=== PATIENT | female | born 1935 | race African-American/Black ===

== ENCOUNTER 2017-12-03 13:13 | Inpatient (IN) | payer OTHER ==
[~2017-12-03] VITALS: Ht 154.9 cm; Wt 75.7 kg
[~2017-12-03 13:13] MED LIST: ALLOPURINOL 10100 M2 PO; ASPIR 8181 MG PO; GABAPENTIN 100100 MG PO; GLIMEPIRIDE4 MG PO; KLOR-CON 1010 MEQ PO; LASIX 40 MG TAB40 M2 PO; LEVEMIR FL100 UNIT/2 SQ; LEVEMIR SUBQ; LOPRESSOR50 PO; LOSARTAN-HCTZ1 EAC1 PO; MOBIC15 MG PO; MOBIC7.5 MG PO; NOVOLOG FL100 UNIT/M SQ; NOVOLOG100 UNIT/1 SUBQ; OXYBUTYNIN 5 MG5 M2 PO; PAXIL10 MG; PLAVIX 75 MG TA75 M1 PO; SIMVASTATIN40 MG PO; ZOCOR20 MG PO
[2017-12-03 13:55] LABS: ABSOLUTE EOSINOPHILS 0.2 thou/uL (0.0-0.7); ABSOLUTE LYMPHOCYTES 2.1 thou/uL (0.8-5.3); ABSOLUTE MONOCYTES 0.6 thou/uL (0.0-1.2); BASOPHILS 0.7 %; EOSINOPHILS 2.7 %; HEMATOCRIT 32.4 % (37.0-47.0); HEMOGLOBIN 10.2 gm/dL (12.0-15.0); LYMPHOCYTES 30.7 %; MCHC 31.6 g/dL (28.0-37.0); MCV 76.1 fL (80.0-100.0); MONOCYTES 9.1 %; MPV 9.1 fl. (7.2-11.1); NUCLEATED RBCS 0 /100WBC; PLATELET COUNT* 347 thou/uL (150-400); POLYS 56.8 %; RBC 4.26 mil/uL (4.20-5.00); RDW-CV 18.7 % (10.5-14.5)
[2017-12-03 14:00] LABS: URINE BILIRUBIN NEGATIVE (Negative); URINE BLOOD TRACE (Negative); URINE CLARITY CLEAR; URINE COLOR YELLOW; URINE GLUCOSE-RANDOM NEGATIVE (Negative); URINE KETONES NEGATIVE (Negative); URINE LEUKOCYTES-REFLEX NEGATIVE (Negative); URINE NITRITE-REFLEX NEGATIVE (Negative); URINE PROTEIN NEGATIVE (Negative); URINE UROBILINOGEN 0.2 E.U./dl (0.2-1.0)
[2017-12-03 14:58] LABS: ANION GAP 10 mmol/L (7-16); BUN 31 mg/dL (7-18); CALCIUM 8.7 mg/dL (8.5-10.1); CHLORIDE 102 mmol/L (98-107); CO2 27 mmol/L (21-32); CREATININE 2.1 mg/dL (0.6-1.3); GLUCOSE 175 mg/dL (70-99); POTASSIUM 3.8 mmol/L (3.5-5.1); SODIUM 139 mmol/L (136-145)
[2017-12-03 15:09] LABS: ALBUMIN 2.7 g/dL (3.4-5.0); ALKALINE PHOSPHATASE 60 U/L (46-116); NT-PRO BRAIN NAT PEPTIDE 330 pg/mL (<300); SGOT 19 U/L (15-37); SGPT 19 U/L (30-65); TOTAL BILIRUBIN 0.3 mg/dL (<0.1-1.0); TOTAL PROTEIN 7.3 g/dL (6.4-8.2); TROPONIN-I LEVEL <0.06 ng/mL (<0.06)
--- NOTE | 2017-12-03 15:22 | EKG ---
[place] [address] ELECTROCARDIOGRAM REPORT Name: TONY VANN Room: [facility]#: [id number] Admission: 12/03/17 Attend Phys: Discharge: Date of : 37 Report #: [id number] THIS REPORT FOR: //name// [facility] ED Test Date: 2017-12-03 Test Time: 13:16:51 Pat Name: TONY VANN Department: Room: Gender: F [employer] Research Associate: Tiago GHOTRA : 1935 Requested By: Mandie Betancourt Order Number: [id number] MD: Ayad Blackwood Measurements Intervals [place] Rate: 57 P: 46 [place]: 175 QRS: -20 QRSD: 115 T: 142 QT: 492 QTc: 479 Interpretive Statements Sinus rhythm LVH with secondary repolarization abnormality Compared to ECG 07/19/2016 18:30:34 Early repolarization now present T-wave abnormality no longer present Electronically Signed On 12-03-2017 15:22:17 CDT by Ayad Blackwood [email or web address] <ELECTRONICALLY SIGNED> By: Ayad Blackwood MD, [facility] 12/03/17 1522 1316 1316 Ayad Blackwood MD, [facility] /EPI
[2017-12-03 16:08] VITALS: BP 138/55
--- NOTE | 2017-12-03 20:29 | NUR ---
PATIENT A&OX4, FORGETFUL AT TIMES, ROOM AIR, IV LEFT FOREARM FIELD STICK. UP WITH ASSISTX1, UNSTEADY AND WEAK. USING BEDSIDE CAMODE. FALL BAND, SOCK, AND BED ALARM ON. INSTRUCTED TO CALL FOR ASSISTANCE. PATIENT ARRIVED ON FLOOR AT 1650, ORIENTED TO ROOM. TOOK REPORT FROM RAIN IN ER. PATIENT HAS NO FURTHER CONCERNS AT THIS TIME. APPROPRAITE AND COOPORATIVE WITH CARE.
[2017-12-03 21:50] VITALS: BP 134/49
[2017-12-04 04:33] LABS: HEMATOCRIT 32.9 % (37.0-47.0); HEMOGLOBIN 10.5 gm/dL (12.0-15.0); MCHC 31.8 g/dL (28.0-37.0); MCV 75.3 fL (80.0-100.0); MPV 9.4 fl. (7.2-11.1); RBC 4.36 mil/uL (4.20-5.00); RDW-CV 18.5 % (10.5-14.5); WBC 6.7 thou/uL (4.0-11.0)
[2017-12-04 04:40] LABS: CALCIUM 8.3 mg/dL (8.5-10.1); CREATININE 1.5 mg/dL (0.6-1.3); MAGNESIUM 1.7 mg/dL (1.8-2.4); POTASSIUM 3.1 mmol/L (3.5-5.1)
--- NOTE | 2017-12-04 06:21 | NUR ---
PATIENT SLEPT MOST OF THE NIGHT. IV FLUIDS CONTINUE TO INFUSE AT 75 ML/HR. PATIENT HAD NO COMPLAINTS OF PAIN. WILL CONTINUE TO MONITOR.
[2017-12-04 07:09] LABS: URINE POTASSIUM-RANDOM 40.4 mmol/L
[2017-12-04 09:41] VITALS: BP 126/45
--- NOTE | 2017-12-04 09:48 | NUR ---
ASSUMED CARE OF PT AROUND 0730 THIS AM. REFER TO ASSESSMENT. IV NO LONGER PATENT THIS AM. PT TO HAVE ELECTROLYTE REPLACEMENT THIS SHIFT. NO OTHER CONCERNS AT THIS TIME. CLWR. WCTM.
[2017-12-04 12:23] VITALS: BP 122/51
--- NOTE | 2017-12-04 15:20 | NUR ---
MET WITH PT TO DISCUSS HOME SITUATION/DC PLANNING. PT LIVES ALONE. HAS SUPPORTIVE SON WHO LIVES CLOSEBY AND ASSISTS NEEDED. PT HAS CANE, IS ABLE TO DO SOME HOUSEHOLD DUTIES. NEEDS ASSIST WITH HER ADLS. PT HAS IN HOME CARE [facility]RU [facility] ([phone]) THRU ASSIST. SPOKE [facility] THERE, HE STATED PT HAS 10HRS/WEEK. THEY ASSIST WITH HOMEMAKER SERVICE A SHOWER WEEKLY. PT IS ASKING ABOUT GETTING HH AGAIN INCLUDING A BATH AIDE. DISCUSSED OPTIONS AND CHOSE [facility]. CALLED AND FAXED INITIAL REFERRAL TO [facility]. PT HAS BEEN ON SERVICE [facility] IN THE PAST BUT SHE STATES THEY 'STOPPED A LONG TIME AGO.' PT PLANS TO RETURN HOME SOON.
[2017-12-04 15:25] VITALS: BP 122/51
[2017-12-04 15:28] VITALS: BP 122/42
--- NOTE | 2017-12-04 16:22 | NUR ---
PT PROGRESSING WELL TOWARDS GOALS. POTASSIUM AND MAG REPLACED THIS SHIFT. DIASTOLIC B/P REMAINS LOW THIS SHIFT. ENCOURAGED ORAL INTAKE FREQUENTLY. PT HAS NO IV ACCESS D/T INFILTRATED IV AND DIFFICULTY TO OBTAIN ACCESS. NO OTHER CONCERNS AT THIS TIME. CLWR. WCTM.
[2017-12-04 17:14] LABS: MAGNESIUM 1.9 mg/dL (1.8-2.4)
[2017-12-04 17:15] LABS: POTASSIUM 4.1 mmol/L (3.5-5.1)
[2017-12-04 20:00] VITALS: BP 141/71
--- NOTE | 2017-12-05 05:32 | NUR ---
PT CARE ASSUMED AFTER REPORT. ASSESSMENT COMPLETE. PT UP WITH ASSIST AND WALKER. PT FORGETFUL AND DOES NOT USE CALL LIGHT. FALL PRECAUTIONS IN PLACE INCLUDING BED ALARM. CALL LIGHT IN REACH AND PT EDUCATED ON USE NUMOROUS TIMES. BED IN LOWEST POSITION. PT INCONT OF B/B. ANDRE CARE AND BED CHANGES PRN. DENIES PAIN.
[2017-12-05 08:00] VITALS: BP 138/44
--- NOTE | 2017-12-05 12:29 | NUR ---
ASSUMED CARE OF PATIENT THIS AM AT 0730. PATIENT IS ALERT AND ORIENTED X 4. SHE DENIES PAIN THIS AM. PATIENT ASSISTED UP TO THE CHAIR AND WITH MEALS. SHE SAID THAT SHE IS READY TO GO HOME TODAY. FSBS MONITORED HER BLOOD SUGARS WERE LOW AT 43. HER BP WAS ALSO LOW. BP MEDICATION HELD. INSULIN HELD THIS AM. WILL CONTINUE TO MONITOR PATIENT'S BLOOD SUGARS AND VITAL SIGNS.
[2017-12-05 15:37] VITALS: BP 155/53
[2017-12-05 20:00] VITALS: BP 121/75
[2017-12-06] VITALS: BP 111/44
[2017-12-06 05:23] LABS: CREATININE 1.3 mg/dL (0.6-1.3); MAGNESIUM 1.8 mg/dL (1.8-2.4); POTASSIUM 3.8 mmol/L (3.5-5.1)
--- NOTE | 2017-12-06 05:30 | NUR ---
PT SLEPT AT INTERVALS DURING THE NIGHT, NO IV, ROOM AIR, UP SEVERAL TIMES TO VOID PER BSC WITH ASSISTANCE, PLEASANT, CALL LIGHT IN REACH, BED ALARM ON FOR SAFETY, WILL CONTINUE TO MONITOR
[2017-12-06 05:54] LABS: HEMATOCRIT 32.9 % (37.0-47.0); HEMOGLOBIN 10.6 gm/dL (12.0-15.0); MCH 24.1 pg (26.0-34.0); MCHC 32.2 g/dL (28.0-37.0); MCV 74.8 fL (80.0-100.0); MPV 9.3 fl. (7.2-11.1); RBC 4.4 mil/uL (4.20-5.00); RDW-CV 18.3 % (10.5-14.5); WBC 7.9 thou/uL (4.0-11.0)
[2017-12-06 08:00] VITALS: BP 161/64
--- NOTE | 2017-12-06 12:49 | NUR ---
Discussed disposition with Pt, continues to plan to return home with [facility] HH. DC orders will need to be faxed to [facility] at [phone]. Family in room and in agreement with POC. Anticipate dc tomorrow.
[2017-12-06 16:00] VITALS: BP 139/69
--- NOTE | 2017-12-06 16:27 | NUR ---
PATIENT SITTING UP IN CHAIR ALL SHIFT. VOIDING PER BSC WITH ASSISTANCE. BLOOD SUGARS WITHIN NORMAL LIMITS, INSULIN GIVEN WHEN REQUIRED. LANTUS DECREASED TO 30 UNITS AT HS DUE TO LOW BLOOD SUGARS IN AM. PATIENT AWARE OF PLAN OF CARE.
[2017-12-06 20:00] VITALS: BP 127/51
[2017-12-06 23:30] VITALS: BP 131/48
--- NOTE | 2017-12-07 04:58 | NUR ---
PT SLEPT AT INTERVALS DURING THE NIGHT, NO IV, SNACK AT HS WITH INSULIN, PLEASANT, UP WITH ASSIST TO THE BSC, STRESS INCONTINENCE, PLEASANT, CALL LIGHT ON REACH, BED ALARM ON FOR SAFETY, WILL CONTINUE TO MONITOR
[2017-12-07 09:00] VITALS: BP 115/43
--- NOTE | 2017-12-07 16:21 | NUR ---
PATIENT BLOOD SGUAR 46 THIS AM DURING AM ROUNDS. PATIENT FOUND TO BE ASYMPTOMATIC. JUICE GIVEN AND PATIENT HAD BREAKFAST. NO INSULIN GIVEN THIS SHIFT. LANTUS DECREASED TO 20 UNITS TO START TONIGHT. PATIENT SITTING UP IN CHAIR ALL SHIFT. ASSISTED UP TO BATHROOM USING WALKER. PATIENT HAD VERY LARGE BM THIS SHIFT.
[2017-12-07 16:35] VITALS: BP 160/73
[2017-12-07 21:30] VITALS: BP 191/67
[2017-12-08 01:07] VITALS: BP 108/47
--- NOTE | 2017-12-08 06:34 | NUR ---
PT AO, USING CALL LITE APPROPRIATELY FOR ASSIST UP TO BSC OVERNIGHT. UP TO BR WITH WALKER AND SBA ALSO. DENIES PAIN OR PROBLEMS. HS ACCUCHECK 235, INSULIN GIVEN ORDERED WITH GOOD SNACK. R LIMB ALERT. NO LBAS THIS MORNING. NO IV ACCESS, TAKING PO MEDS WITHOUT DIFFICULTY. DNR. STRESS INCONTINENCE AT TIMES. ANTICIPATING DISCHARGE HOME TODAY WITH WALKER AND HOME HEALTH. BP ELEVATED AT START OF SHIFT, MORNING BP MED HAD BEEN HELD. BP RESPONDING WELL TO MEDS GIVEN AT HS. CALL LITE IN EASY REACH, BED ALARM ON FOR SAFETY.
[2017-12-08 08:20] VITALS: BP 130/47
[2017-12-08 12:00] VITALS: BP 147/49; BP 148/72; BP 152/63
[2017-12-08 12:32] VITALS: BP 122/51
--- NOTE | 2017-12-08 12:33 | NUR ---
MERE was informed pt to dc home and needed a rolling walker. MERE called and spoke with Alicja/[facility] [phone] and received approval for order, MERE faxed completed referral and order to fax [phone]. MERE faxed final orders, med list and face to face to [facility] after calling and speaking with intake who had already accepted referral and received initial information. MERE attempted to fax 4 times to two different numbers and fax would not complete so MERE provided to Maggie who was able to accept by hand. Pt has a ride home and did not have any other known dc needs.
[2017-12-08 13:54] VITALS: BP 122/51
--- NOTE | 2017-12-08 15:18 | NUR ---
1450-DISCHARGE INSTRUCTIONS REVIEWED WITH PT AND HER NIECE. PT AND FAMILY DO NOT VERBALIZE ANY CONCERNS OR QUESTIONS AT THIS TIME. PT VSS THIS SHIFT. ROLLER WALKER DELIVERED TO PT PRIOR TO D/C. PT TAKEN OUT VIA WHEELCHAIR WITH NURSING STAFF. NO RX GIVEN THIS SHIFT. EXTRA COPY OF D/C INSTRUCTIONS GIVEN TO PT AND FAMILY FOR "[facility]" WHO MANAGES HER CARE OUTSIDE OF THE HOSPITAL.
== END 2017-12-08 14:55 | disposition home health service (06) | DRG 682 ==
LOC: M.ERS 13:13 → M.TBA-ER 15:41 → M.3W 15:41
PROVIDERS: Family Medicine; Nurse Practitioner Family; ADMIT Internal Medicine
DX: I12.9 Hypertensive chronic kidney disease with stage 1 through stage 4 chronic kidney disease, or unspecified chronic kidney disease (principal); N17.0 Acute kidney failure with tubular necrosis; E44.0 Moderate protein-calorie malnutrition; I69.351 Hemiplegia and hemiparesis following cerebral infarction affecting right dominant side; N18.4 Chronic kidney disease, stage 4 (severe); I95.2 Hypotension due to drugs; E11.22 Type 2 diabetes mellitus with diabetic chronic kidney disease; Z66 Do not resuscitate; E11.649 Type 2 diabetes mellitus with hypoglycemia without coma; E11.51 Type 2 diabetes mellitus with diabetic peripheral angiopathy without gangrene; E78.5 Hyperlipidemia, unspecified; E11.42 Type 2 diabetes mellitus with diabetic polyneuropathy; E86.0 Dehydration; I25.2 Old myocardial infarction; Z95.5 Presence of coronary angioplasty implant and graft; Z90.49 Acquired absence of other specified parts of digestive tract; Z90.11 Acquired absence of right breast and nipple; Z90.710 Acquired absence of both cervix and uterus; Z79.4 Long term (current) use of insulin; Z68.31 Body mass index [BMI] 31.0-31.9, adult; Z79.82 Long term (current) use of aspirin; Z79.899 Other long term (current) drug therapy; Z82.49 Family history of ischemic heart disease and other diseases of the circulatory system

== ENCOUNTER 2018-03-24 23:03 | Inpatient (IN) | payer OTHER ==
[~2018-03-24] VITALS: Ht 154.9 cm; Wt 72.1 kg
[2018-03-24 23:04] VITALS: BP 112/52
--- NOTE | 2018-03-24 23:30 | NUR ---
Pt capable of moving bilateral legs and lifting hips for bedpan placement x2, but unable to provide urine. Pt states she might be able to if placed on commode. Pt moved to side of bed, but pt unable to stand. Dr Orozco updated.
[2018-03-24 23:45] LABS: ABSOLUTE BASOPHILS 0.1 thou/uL (0.0-0.2); ABSOLUTE EOSINOPHILS 0.3 thou/uL (0.0-0.7); ABSOLUTE LYMPHOCYTES 2.8 thou/uL (0.8-5.3); ABSOLUTE MONOCYTES 0.7 thou/uL (0.0-1.2); ABSOLUTE NEUTROPHILS 3.7 thou/uL (1.6-8.1); BASOPHILS 1.9 %; EOSINOPHILS 3.6 %; HEMOGLOBIN 11.5 gm/dL (12.0-15.0); LYMPHOCYTES 36.3 %; MCH 23.5 pg (26.0-34.0); MCHC 31.8 g/dL (28.0-37.0); MCV 73.9 fL (80.0-100.0); MPV 7.9 fl. (7.2-11.1); NUCLEATED RBCS 0 /100WBC; PLATELET COUNT* 339 thou/uL (150-400); POLYS 49.2 %; RBC 4.88 mil/uL (4.20-5.00); RDW-CV 20.3 % (10.5-14.5); WBC 7.6 thou/uL (4.0-11.0)
[2018-03-24 23:52] LABS: CALCIUM 9.2 mg/dL (8.5-10.1); CREATININE 1.5 mg/dL (0.6-1.3); POTASSIUM 4.3 mmol/L (3.5-5.1)
[2018-03-24 23:57] LABS: ALBUMIN 3.1 g/dL (3.4-5.0); TOTAL BILIRUBIN 0.4 mg/dL (<0.1-1.0)
[2018-03-25 00:06] LABS: URINE BILIRUBIN NEGATIVE (Negative); URINE BLOOD NEGATIVE (Negative); URINE CLARITY CLEAR; URINE COLOR YELLOW; URINE GLUCOSE-RANDOM NEGATIVE (Negative); URINE KETONES NEGATIVE (Negative); URINE LEUKOCYTES-REFLEX NEGATIVE (Negative); URINE NITRITE-REFLEX NEGATIVE (Negative); URINE PROTEIN NEGATIVE (Negative); URINE SPECIFIC GRAVITY 1.025 (1.005-1.030); URINE UROBILINOGEN 0.2 E.U./dl (0.2-1.0)
[2018-03-25 00:18] LABS: BE 1.5 mmol/L (-2 to +3); HCO3 26.7 mmol/L (22.0-26.0); PCO2 44.3 mmHg (35.0-45.0); pH 7.398 (7.340-7.450)
[2018-03-25 00:20] LABS: PO2 26.4 mmHg (75.0-100.0)
[2018-03-25 01:06] LABS: MAGNESIUM 1.9 mg/dL (1.8-2.4)
[2018-03-25 01:31] LABS: ANISOCYTOSIS 2+; PLATELET ESTIMATE ADEQUATE
[2018-03-25 01:32] LABS: HYPOCHROMASIA 1+; MICROCYTES 1+; TARGET CELLS 1+
[2018-03-25 02:30] VITALS: BP 140/78
--- NOTE | 2018-03-25 04:26 | NUR ---
RECEIVED REPORT FROM YUN THOMAS AT 0225. PT ARRIVED TO UNIT AT 0240 VIA CART. PT ORIENTED TO ROOM AND CALL LIGHT, MARINE AIR GROUND TASK FORCE PLANNERS IN PLACE, TRACING SINUS RHYTHM. HOURLY ROUNDING COMPLETED, HIGH FALL PRECAUTIONS IN PLACE, Q2H REPOSITIONING COMPLETED, CALL LIGHT WITHIN REACH.
[2018-03-25 08:00] VITALS: BP 107/44
--- NOTE | 2018-03-25 09:50 | NUR ---
RECEIVED CONSULT FOR POSSIBLE REHAB ADMISSION. CONSULT HAS BEEN ACKNOWLEDGED BY SUPERVISOR CUTTING AND BONING AND DR. MAYES. PT ADMITTED WITH LOW BS AND ENCEPHLOPATHY S/P FALL AND POSSIBLE CVA. NEUROLOGY CONSULT PENDING, STROKE WORKUP IN PROGRESS, PT/OT/ST EVALUATIONS ARE PENDING. WILL FOLLOW ALONG WITH PATIENT TO SEE RESULTS OF WORKUP AND EVALUATIONS TO DETERMINE PATIENTS NEED FOR ACUTE REHAB. THANK YOU FOR THIS CONSULT.
[2018-03-25 12:00] VITALS: BP 150/75
--- NOTE | 2018-03-25 14:05 | 2DMMODE ---
[place] [address] 2 D/M-MODE ECHOCARDIOGRAM Name: TONY VANN Room: [address] IN [facility]#: [id number] Admission: 03/25/18 Attend Phys: Jonathan Mcelroy Discharge: Date of : 37 Date of Service: 03/25/18 1405 Report #: [id number] THIS REPORT FOR: //name// APPROVED REPORT Study performed: 03/25/2018 11:12:11 EXAM: Comprehensive 2D, Doppler, and color-flow Echocardiogram Patient Location: In-Patient Room #: 200 Status: routine BSA: 1.73 HR: 68 bpm BP: 107/44 mmHg Rhythm: NSR Other Information Study Quality: Good Indications CVA/TIA Echo Enhancing Agent Comments: Bubble study was not done due to no working IV access. Patient though had a negative bubble study with prior echo done in June 2017 2D Dimensions LVEF(%): 74.74 (>50%) IVSd: 14.71 (7-11mm) LVOT Diam: 20.04 (18-24mm) LVDd: 40.02 mm PWd: 10.99 (7-11mm) Ascending Ao: 26.31 (22-36mm) LVDs: 22.79 (25-40mm) Aortic Root: 26.99 mm Abraham's LVEF: 74.74 % Volumes Left Atrial Volume (Systole) LA ESV Index: 27.80 mL/m2 Aortic Valve AoV Peak Shaq.: 1.45 m/s AO Peak Gr.: 8.46 mmHg LVOT Max P.36 mmHg AO Mean Gr.: 4.79 mmHg LVOT Mean P.09 mmHg LVOT Max V: 1.04 m/[place] [address] 2 D/M-MODE ECHOCARDIOGRAM Name: TONY VANN Room: [address] IN M.R.#: [id number] Admission: 03/25/18 Attend Phys: Jonathan Mcelroy Discharge: Date of : 37 Date of Service: 03/25/18 1405 Report #: [id number] AO V2 VTI: 30.90 cm LVOT Mean V: 0.66 m/s JOSE JUAN (VTI): 2.74 cm2 LVOT V1 VTI: 26.87 cm Mitral Valve E/A Ratio: 1.01 MV Decel. Time: 244.49 ms MV E Max Shaq.: 0.91 m/s MV PHT: 70.90 ms MVA (PHT): 3.10 cm2 TDI E/Lateral E': 11.38 E/Medial E': 22.75 Medial E' Shaq.: 0.04 m/s Lateral E' Shaq.: 0.08 m/s Pulmonary Valve PV Peak Shaq.: 1.00 m/s PV Peak Gr.: 4.02 mmHg Tricuspid Valve RAP Estimate: 5.00 mmHg TR Peak Gr.: 33.94 mmHg RVSP: 38.94 mmHg PA Pressure: 38.94 mmHg Left Ventricle The left ventricle is normal size. There is normal LV segmental wall motion. Mild to moderate concentric left ventricular hypertrophy. Left ventricular systolic function is vigorous. LVEF is 80% Transmitral Doppler flow pattern suggests impaired LV relaxation. Right Ventricle The right ventricle is normal size. The right ventricular systolic function is normal. Atria The left atrium size is normal. The right atrium size is normal. Aortic Valve The aortic valve is normal in structure. No aortic regurgitation is present. There is no aortic valvular stenosis. Mitral Valve The mitral valve is normal in structure. Mild mitral regurgitation. No evidence [place] [address] 2 D/M-MODE ECHOCARDIOGRAM Name: VIRY VANNRYLAN Eddy Room: [address] IN [facility]#: [id number] Admission: 03/25/18 Attend Phys: Jonathan Mcelroy Discharge: Date of : 37 Date of Service: 03/25/18 1405 Report #: [id number] Tricuspid Valve The tricuspid valve is normal in structure. Trace tricuspid regurgitation. Mild pulmonary hypertension. Pulmonic Valve The pulmonary valve is normal in structure. There is no pulmonic valvular regurgitation. Great Vessels The aortic root is normal in size. IVC is normal in size and collapses with >50% inspiration Pericardium There is no pericardial effusion. <Conclusion> The left ventricle is normal size. Mild to moderate concentric left ventricular hypertrophy. Left ventricular systolic function is vigorous. LVEF is 80% Transmitral Doppler flow pattern suggests impaired LV relaxation. Mild mitral regurgitation. Trace tricuspid regurgitation. Mild pulmonary hypertension. IVC is normal in size and collapses with >50% inspiration <ELECTRONICALLY SIGNED> By: Rohith Stokes MD, FACC 03/25/18 1405 1405 1405 Rohith Stokes MD, FACC /INF
--- NOTE | 2018-03-25 14:44 | NUR ---
Pt is A&O. Resides at home alone. Pt has inhome care givers through [employer] of [phone]. Caregivers, perform cleaning, meal prep, bathing assist and transportation. Pt uses a RW or cane for mobility. Supportive family that is involved in POC. Hx of [facility] HH. No hx of SNF. CM discussed possibility of needing skilled at dc, Pt stated "I really don't want to go and stay anywhere, I would rather just go home. PT/OT/ST henning ordered. Following for disposition.
[2018-03-25 15:38] VITALS: BP 194/74
--- NOTE | 2018-03-25 17:15 | NUR ---
I ASSUMED CARE OF THE PATIENT AT 0700. SHE IS ALERT AND ORIENTED X4 AND PATIENT IS MAX ASSIST OF 2. SHE IS A Q2H TURN. BED IS IN THE LOW LOCKED POSITION AND CALL LIGHT IS IN REACH. HOURLY ROUNDING WAS COMPLETED AND PATIENT NEEDS ARE MET. PAIN IS DENIED. IV ACCESS IS NOT PRESENT AND THERE IS AN ORDER TO LEAVE IT OUT. BLOOD SUGAR IS MUCH BETTER. SHE IS A RIGHT SIDED LIMB ALERT. 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 WILL CONTINUE TO MONITOR. SHE NEEDS HELP WITH MEAL SETUP AND ADL'S. PATIENT HAD A LARGE BM IN THE BED WHEN SHE WAS ASKED TO BEAR DOWN FOR HER ECHO.
--- NOTE | 2018-03-25 17:57 | EKG ---
[place] [address] ELECTROCARDIOGRAM REPORT Name: TONY VANN Room: [address] ADM IN M.R.#: [id number] Admission: 03/25/18 Attend Phys: Ann-Marie He Discharge: Date of : 36 Report #: [id number] THIS REPORT FOR: //name// [facility] ED Test Date: 2018-03-24 Test Time: 23:11:11 Pat Name: TONY VANN Department: Room: [address] Gender: F Patient Admitting Representative: NITHIN : 1935 Requested By: Elenita Orozco Order Number: [id number] Brittany MD: Rohith Stokes Measurements Intervals [place] Rate: 59 P: 44 [place]: 173 QRS: -23 QRSD: 106 T: 116 QT: 453 QTc: 449 Interpretive Statements Sinus rhythm LVH with secondary repolarization abnormality Compared to ECG 12/03/2017 13:16:51 No significant changes Electronically Signed On 03-25-2018 17:57:33 CDT by Rohith Stokes [email or web address] <ELECTRONICALLY SIGNED> By: Rohith Stokes MD, [facility] 03/25/18 1757 10 10 Rohith Stokes MD, FAC /EPI
[2018-03-25 19:54] VITALS: BP 143/69
[2018-03-26] VITALS: BP 116/60
[2018-03-26 04:00] VITALS: BP 143/60
[2018-03-26 04:49] LABS: ANION GAP 7 mmol/L (7-16); BUN 18 mg/dL (7-18); CALCIUM 8.5 mg/dL (8.5-10.1); CHLORIDE 104 mmol/L (98-107); CHOLESTEROL 147 mg/dL (<200); CO2 30 mmol/L (21-32); CREATININE 1.3 mg/dL (0.6-1.3); GLUCOSE 116 mg/dL (70-99); HDL CHOLESTEROL 43 mg/dL (>40); LDL CHOLESTEROL 76 mg/dL (<100); MAGNESIUM 1.6 mg/dL (1.8-2.4); POTASSIUM 4.2 mmol/L (3.5-5.1); SODIUM 141 mmol/L (136-145); TC:HDL 3.4 Ratio (Not establshd); TRIGLYCERIDE 143 mg/dL (<150); VLDL 29 mg/dL (<40)
[2018-03-26 04:54] LABS: SERUM ASSESSMENT CLEAR
[2018-03-26 08:02] VITALS: BP 124/42
--- NOTE | 2018-03-26 08:06 | NUR ---
PT IS ABLE TO COMMUNICATE HER NEEDS TO STAFF EFFECTIVELY. CURRENT PAIN MEDICATION REGIMEN HAS BEEN ADEQUATE FOR CONTROLLING HER PAIN UP TO THIS TIME. JARAD MONTOYA. PT HAD AN MRI T+L-SPINE DURING THIS SHIFT; RESULTS COMMUNICATED TO DR. GARRETT.
--- NOTE | 2018-03-26 08:55 | NUR ---
ASSUMED CARE OF PT THIS AM AROUND 07- TRAFFIC DIRECTOR IN PLACE ORDERED, TRACING SR- UPON ASSESSMENT PT NOTED TO BE RESTING IN BED, EYES CLOSED- ARROUSABLE BUT GROGGY- PT A&O X3-4 WITH NOTED FORGETFULLNESS- ABRAHAM IN PLACE D/D EVELIN COLORED URINE WITH NOTED SEDIMENTATION R/T RETENTION/CONT OF BOWEL- BED REST IN PLACE WITH Q 2 HOUR TURNS INDICATED- LCTA, DIMINISHED IN BASES- RESP EVEN AND UN-LABORED- VSS, O2 SAT 96% ON RA- ABDOMEN SOFT/ROUND/NON-TENDER, BS X4 QUADS- LAST BM REPORTED 03/25/18- SET UP REQUIRED WITH MEALS, GOOD PO INTAKE NOTED WITH BREAKFAST THIS AM- BS MONITORED ORDERED, SCHEDULED INSULIN PRESCIBED- TRACE EDEMA NOTED TO BLE- NIH NOTED AT 1 WITH NO CHANGES NOTED- PT DENIES ANY C/O PAIN/DISCOMFORT AT THIS TIME- CALL LIGHT AND PERSONAL BELONGINGS WITH IN REACH- BED ALARM IN PLACE AND WORKING FOR PT SAFETY/NEEDS-HOURLY ROUNDS IN PLACE R/T SAFETY/NEEDS- ALL NEEDS MET AT THIS TIME-WCTM
[2018-03-26 12:11] VITALS: BP 122/45
--- NOTE | 2018-03-26 12:34 | CON ---
[address] [address] CONSULTATION Name: TONY VANN Room: [address] ADM IN M.R.#: [id number] Admission: 03/25/18 Attend Phys: Ann-Marie He Discharge: Date of : 37 Report #: [id number] THIS REPORT FOR: //name// CC: Ken Mcelroy DATE OF SERVICE: 03/25/2018 HISTORY OF PRESENT ILLNESS: This is an 82-year-old female patient who was evaluated by me for the leg weakness. I talked to the Emergency Room physician who admitted this patient. I talked to the nurses and I talked to the patient herself. This patient has some baseline weakness. Records indicate she was seen by Dr. 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 Apparently, her notes indicate she was legally blind even that time. She was admitted with what looks like a pretty significant hypoglycemia and it was persistent and she became weak in both lower extremities and was unable to walk. She indicated that she has started to improve and her strength is better. She is difficult to evaluate because we do not know what her baseline is. She continued to be weak. Her rest of the history is poorly defined. She has very pronounced and severe weakness in the lower extremities. She apparently had a fall, but is not complaining of any back pain and she does not know anything, which makes it better or worse. REVIEW OF SYSTEMS: Indicate that this patient has a history of stroke. She is legally blind. She had the workup done not too long ago when she had a stroke. From her MRI, it looks like she had another stroke. She is a diabetic. She is on Plavix. She also takes the pain medication. She has a history of dyslipidemia. She has a severe hypoglycemia. She has a history of neuropathy, diverticulitis, kidney disease, hysterectomy, mastectomy and hypertension. This was her relevant 14-point review of system. She does not have any new hematological, dermatological, psychiatric, throat, allergic symptom associated with present symptomatology. PAST MEDICAL HISTORY: Positive for stroke. That stroke was in 2017 and looks like was occipital lobe stroke. FAMILY HISTORY: Negative for early age stroke. SOCIAL HISTORY: She does not smoke or drink any alcohol. PHYSICAL EXAMINATION: NEUROLOGICAL: Indicate she is alert, responsive, able to follow simple and complex command. Her speech looks intact. Memory and fund of knowledge is at her baseline. Cranial nerve examination 2 through 12 was attempted. She has very difficult time seeing but she can count fingers sometime. She moves all 4 extremities. She is weak in all 4 extremities. [place] [address] CONSULTATION Name: TONY VANN Room: [address] IN ..#: [id number] Admission: 03/25/18 Attend Phys: Ann-Marie He Discharge: Date of : 37 Report #: [id number] extremities than upper extremities. Reflexes are diminished. Tone looks symmetrical. I could not look at the fundus. EXTREMITIES: She does not appear to have any edema, cyanosis or jaundice. GENERAL: She is moderately built individual. HEENT: She can hear and see. VITAL SIGNS: The last blood pressure is 107/44, pulse is 72, temperature is 97.9 and respiration is 16. LABORATORY DATA: Indicate a creatinine of 1.5. White count is normal at 7.6. She did have an MRI of the brain, which demonstrates new cerebellar strokes. IMPRESSION: 1. Lot of symptoms may be secondary to her hypoglycemia, which has been persistent and at least significant. 2. 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 We may have to address that question because she has multiple strokes in the posterior fossa since last year. 3. Spine pathology is unlikely but probably need to be excluded with weakness of the legs. RECOMMENDATIONS: We will get some recommendations. I discussed the situation with the patient. We will see how she does with PT, OT. I will get the MRI of the thoracic and lumbar spine done to exclude any pathology there. She may need some more workup as an outpatient for recurrent strokes, which has been happening since 2017 and main workup will be to look for any episode of atrial fibrillation. She is already on aspirin and Plavix and I am not sure what else can be done until we find the atrial fibrillation or any other reason to anticoagulate her. Thank you very much for this referral and if you have any question, please feel free to contact me. <ELECTRONICALLY SIGNED> By: Americo Lo MD 03/26/18 1234 1204 09Americo Lo MD /nt
--- NOTE | 2018-03-26 14:59 | NUR ---
CONTINUING TO FOLLOW PATIENT ALONG WITH DR. MAYES. PATIENT WITH CVA. PARITICIPATING WITH THERAPIES. SPOKE WITH THERAPIES AND STATE PATIENT WOULD BE [facility] CANDIDATE AND HAS NEEDS FOR PT/OT/ST. PATIENT HAS SUPPORTIVE FAMILY AND CURRENTLY HAS IN HOME ASSISTANCE WITH HOMAKING AND A BATHE AID. WOULD BE ABLE TO INCREASE ASSISTANCE NEEDED IN HOME AFTER REHAB IF NEEDED. WILL PLAN TO ACCEPT PATIENT TO ACUTE REHAB ONCE MEDICALLY STABLE PENDING INSURANCE AUTHORIZATION. SPOKE WITH JENNIFER HU AND INFORMED HER A TENTATIVE ACCEPTANCE.
--- NOTE | 2018-03-26 15:58 | EKG ---
[place] [address] ELECTROCARDIOGRAM REPORT Name: TONY VANN Room: [address] ADM IN M.R.#: [id number] Admission: 03/25/18 Attend Phys: Ann-Marie He Discharge: Date of : 37 Report #: [id number] THIS REPORT FOR: //name// [facility] Test Date: 2018-03-26 Test Time: 10:07:12 Pat Name: TONY VANN Department: Room: [address] Gender: F Prizer Hand: : 1935 Requested By: Tobias Hanson Order Number: [id number] Brittany MD: Ayad Blackwood Measurements Intervals [place] Rate: 60 P: 40 NE: 175 QRS: -20 QRSD: 104 T: 107 QT: 461 QTc: 461 Interpretive Statements Sinus rhythm Atrial premature complex Borderline left axis deviation Abnormal T, consider ischemia, lateral leads Baseline wander in lead(s) V1 Compared to ECG 03/24/2018 23:11:11 Atrial premature complex(es) now present Electronically Signed On 03-26-2018 15:58:09 CDT by Ayad Blackwood [email or web address] <ELECTRONICALLY SIGNED> By: Ayad Blackwood MD, [facility] 03/26/18 1558 1007 1007 Ayad Blackwood MD, [facility] /EPI
[2018-03-26 16:00] VITALS: BP 143/68
--- NOTE | 2018-03-26 16:49 | NUR ---
PT CURRENTLY RESTING IN BED SIDE RECLINER- LOCOMOTIVE OPERATOR IN PLACE AND CONTINUED INDICATED, TRACING SB- PT UP WORKING WITH THERAPIES PRESCIBED, TOLERATING WELL- GOOD PO INTAKE NOTED WITH MEALS- BS MONITORED PRESCIBED, SSI AND SCHEUDLED INSULIN PRESCIBED- MG THIS AM NOTED TO BE 1.6, REPLACED THIS SHIFT PER PROTOCOL WITH REDRAW NOTED TO BE 1.9- DENIES ANY C/O PAIN/DISCOMFORT AT THIS TIME- CALL LIGHT AND PERSONAL BELONGINGS WITH IN REACH- ALL NEEDS MET AT THIS TIME-WCTM
[2018-03-26 20:00] VITALS: BP 150/69
[2018-03-27] VITALS: BP 169/56
--- NOTE | 2018-03-27 01:45 | NUR ---
ASSUMED PT CARE REPORT RECEIVED FROM NURSE. PT IS ALERT AWAKE ORIENTED X 3. SINUS RYTHM. ON ROOM AIR. VITAL SIGNS WITHIN NORMAL LIMIT. USES THE BEDPAM SO FAR THREE TIMES TO URINATE. NO COMPLAIINT OF PAIN. WILL CONTINUE TO MONITIR
[2018-03-27 02:11] LABS: GLYCOHEMOGLOBIN (HGB A1C) 5.8 % (4.8-5.6)
[2018-03-27 04:00] VITALS: BP 110/56
[2018-03-27 08:00] VITALS: BP 141/82
--- NOTE | 2018-03-27 08:47 | NUR ---
ASSUMED RESPONSIBILITY OF PT THIS AM PT IS ALERT AND ORIENTED FORGETFUL AND IRRITABLE C/O PAIN TO LEFT CHEST AREA WHEN MOVING AROUND SEEMS MORE MUSCULAR THAN ACTUAL CHEST PAIN WENT AWAY AFTER NOT MOVING RIGHT LIMB ALERT FOR RIGHT MASECTOMY ACHS BS 74 THIS AM NO INSULIN GIVEN PT IS VERY WEAK USES WALKER BUT STILL SLOW AND NEEDS EXTRA TIME CALL LIGHT IN REACH
--- NOTE | 2018-03-27 11:33 | NUR ---
Pt possibly to dc to inpt rehab today pending insurance auth received. SW to continue to follow.
[2018-03-27 11:47] VITALS: BP 121/45
[2018-03-27 15:18] VITALS: BP 119/47
--- NOTE | 2018-03-27 18:09 | NUR ---
PT BECAME INCREASINGLY MORE CONFUSED T/O DAY ALSO MORE WEAK SEEMS TO LOSE FUNCTION ALMOST COMPLETELY ON THAT LEFT SIDE WITH TRANSFERS AND LEANS TO THE RIGHT DRAMATICALLY HAVE TO KEEP REDIRECTING PT PT IS ASSIST X2 STATED DURING DINNER SHE WAS 'BLIND AND HAD BEEN' BUT SAW EVERYTHING ALL DAY NO BM BUT WAS INCONTINENT OF URINE WITH A STRONG ODOR CALL LIGHT IN REACH DENIES PAIN EXCEPT LEFT CHEST AREA WHEN MOVING
[2018-03-27 19:40] VITALS: BP 129/52
[2018-03-28] VITALS: BP 126/54
[2018-03-28 04:00] VITALS: BP 142/62
--- NOTE | 2018-03-28 04:25 | NUR ---
END SHIFT: PT RESTED WELL. C/O PAIN IN LEFT BREAST WITH MOVEMENT ONLY. PT STATES SHE DOES NOT NEED ANY MEDICATION FOR PAIN. C/O BLURRED VISION AT TIMES- PT STATES THAT THIS IS NOT NEW AND FROM PREVIOUS STROKE. PROFOUND WEAKNESS NOTED. PT WAS UNABLE TO GET OUT OF BED TO COMMODE OVER SHIFT AND REQUIRED TURNING AND BEDPAN. PT HAD A FEW WATERY LOOSE STOOLS OVER SHIFT. 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 BLOOD SUGARS CONTROLLED AND WNL. AWAITING DC TO REHAB. SAFETY PRECAUTIONS IN PLACE. VSS. WILL CONT TO MONITOR.
[2018-03-28 07:57] VITALS: BP 130/60
[2018-03-28 10:27] LABS: % SATURATION 7 % (20-39); IRON 21 ug/dL (50-175)
[2018-03-28 11:34] VITALS: BP 113/43
[2018-03-28 15:42] VITALS: BP 128/56
--- NOTE | 2018-03-28 17:13 | NUR ---
SHIFT NOTE - PT PARTICIPATED WITH PT/OT THIS SHIFT. PT ABLE TO TRANSFER FROM BED TO CHAIR WITH ASSIST OF 2 TWICE THIS SHIFT. PT USING BEDPAN. PT WILL CALL OUT WHEN NEEDED. US CAROTID AND RIB XRAY THIS SHIFT IN ROOM.
[2018-03-28 19:40] VITALS: BP 131/53
[2018-03-29] VITALS: BP 113/36
[2018-03-29 04:00] VITALS: BP 117/48
[2018-03-29 05:05] LABS: HEMATOCRIT 33.2 % (37.0-47.0); HEMOGLOBIN 10.5 gm/dL (12.0-15.0); MCH 23.5 pg (26.0-34.0); MCHC 31.5 g/dL (28.0-37.0); MCV 74.6 fL (80.0-100.0); MPV 8.7 fl. (7.2-11.1); RBC 4.46 mil/uL (4.20-5.00); RDW-CV 20.3 % (10.5-14.5); WBC 7.2 thou/uL (4.0-11.0)
--- NOTE | 2018-03-29 05:18 | NUR ---
A&O X4 CALM COOPERITVE. SR ON THE MONTIOR. UP WITH X1-2 MAX ASSIST. [id number]. VITALS WNL. SEE MAR. SEE CHARTING. FALL PRECAUTIONS IN PLACE. HOURLY ROUNDING FOR SAFETY.
[2018-03-29 05:23] LABS: ALBUMIN 2.5 g/dL (3.4-5.0); CALCIUM 8.3 mg/dL (8.5-10.1); CREATININE 1.4 mg/dL (0.6-1.3); POTASSIUM 3.6 mmol/L (3.5-5.1); TOTAL BILIRUBIN 0.2 mg/dL (<0.1-1.0); TOTAL PROTEIN 6.6 g/dL (6.4-8.2)
[2018-03-29 08:00] VITALS: BP 152/54
[2018-03-29 11:44] VITALS: BP 128/57
[2018-03-29 15:53] VITALS: BP 139/46
--- NOTE | 2018-03-29 18:07 | NUR ---
SHIFT NOTE - PT PARTICIPATED WITH THERAPY THIS SHIFT. PT ABLE TO SIT IN CHAIR FOR 3 HOURS THIS SHIFT. PT ABLE TO TRANSFER FROM CHAIR TO BED WITH ASSIST X 1 (MOD). PT USED BEDPAN MULTIPLE TIMES THIS SHIFT.
[2018-03-29 19:40] VITALS: BP 129/61
[2018-03-30] VITALS: BP 130/52
[2018-03-30 04:00] VITALS: BP 167/65
--- NOTE | 2018-03-30 06:45 | NUR ---
APROX 0440 PT BECAME CONFUSED. UNABLE TO REORIENT. PT BECAME COMBATIVE AND BELLIGERENT. PT REFUSED TO LET STAFF HELP. PT REFUSED TO ANSWER ANY QUESTIONS. WAS TEMPORARY ABLE TO RETURN PT TO BED. PT ATTEMPTED TO EXIT THE BED, PT REFUSED TO GET BACK INTO BED, AND REFUSED TO COMMUNICATE WITH STAFF. PT HIGH RISK FOR FALLS AND UNABLE TO STAND ON OWN. A STAFF PERSON HAS REMAINED IN ROOM TO PREVENT FALLS. PT REFUSED PROTONIX IN AM.
[2018-03-30 08:00] VITALS: BP 135/54
--- NOTE | 2018-03-30 09:51 | NUR ---
ASSUMED CARE OF PT AT 0730. PT SITTING ON EDGE OF BED. 1:1 NURSING STAFF SITTER AT BEDSIDE. PT A&0X4, FORGETFUL AT TIMES. PT STATES SHE IS SITTING ON EDGE OF BED AND TOLD THIS NURSE THAT SHE WILL LET ME DO MY JOB SINCE NO ONE ELSE IS. PT APPEARS FLAT AND IRRITABLE. THIS RN ABLE TO CALM PT AND GOAL FOR COOPERATION AND COMPLIANCE TODAY. PT TRACING SB ON THE PUBLISHING AGENT. ON RA SAT UPPER 90'S. DENIES ANY SHORTNESS OF BREATH OR PAIN AT THIS TIME. LEFT SIDED WEAKNESS NOTED. PT HAS STRESS INCONT, BRIEF NOTED. NIH COMPLETED-PT SCORING 2 FOR LEFT SIDED UPPER WEAKNESS. RIGHT LIMB ALERT IN PLACE. PT UP WITH MAX ASSIST TO BSC. PT GOAL IS COMPLIANCE AND COOPERATION, PT, OT, UP TO CHAIR FOR MEALS. AM ASSESSMENT CHARTED. MEDICATIONS PER MAR. PT REPOSITIONED EVERY 2 HOURS FOR COMFORT. HOURLY ROUNDING OBSERVED. BED IN LOW POSITION. BED ALARM IN PLACE .FALL PRECAUTIONS IN PLACE. CALL LIGHT WITHIN REACH. WILL CONTINUE PLAN OF CARE.
[2018-03-30 12:05] VITALS: BP 107/54
[2018-03-30 16:00] VITALS: BP 105/57
--- NOTE | 2018-03-30 16:19 | NUR ---
NO ACUTE CHANGES THROUGHOUT SHIFT. REFER TO CHARTING. PT MORE FRIENDLY, COOPERATIVE AND COMPLIANT THROUGHOUT AFTERNOON. SITTER REMOVED. PT PROGRESSING TOWARDS GOALS. PROBABLE DISCHARGE TO REHAB TOMORROW 03/31. PT WORKED WITH PT AND OT TODAY-TOLERATED WELL. PT SAT IN RECLINER FOR MEALS AND THROUGHOUT SHIFT. CONTINUES TO TRACE SR/SB ON THE DIETITIAN TEACHER. ON RA SAT UPPER 90'S. DENIES ANY PAIN OR SHORTNESS OF BREATH. PT UP WITH MAX ASSIST- NEGLECT TO LEFT SIDE NOTED. MEDICATIONS PER SEP. PT REPOSITIONED EVERY 2 HOURS FOR COMFORT. HOURLY ROUNDING OBSERVED. BED IN LOW POSITION. BED/CHAIR ALARM IN PLACE. FALL PRECAUTIONS IN PLACE. CALL LIGHT WITHIN REACH. WILL CONTINUE PLAN OF CARE.
[2018-03-30 19:20] VITALS: BP 152/69
[2018-03-31] VITALS (7 sets, daily range): BP systolic 98–157; BP diastolic 39–59
--- NOTE | 2018-03-31 04:52 | NUR ---
AAOX4, CAN BE FORGETFUL AT TIMES. RESP REG AND UNLABORED SIN W/D. LEFT SIDED WEAKNESS. NIH 2. TELEMETRY PACK INTACT WITH ALARMS SET. PT TURNED Q2 HOURS. VSS AND NO ACUTE CHANGES DURING SHIFT. WILL CONTINUE TO MONITOR
--- NOTE | 2018-03-31 10:09 | NUR ---
CM faxed referral to [facility]. Updated Pt on POC, Pt is in agreement. CM asked Liv at [facility] to initiate auth, anticipate dc soon.
--- NOTE | 2018-03-31 10:35 | NUR ---
AIRPLANE FUELER FOLLOW UP ON PATIENT ALONG WITH DR. MAYES. INSURANCE DENIED ACUTE REHAB ON FRIDAY GAVE OPTION FOR [id number] TO BE DONE BY TODAY AT NOON. SPOKE WITH JENNIFER HU WHO STATES PHYSICIAN DECISION IS NOT TO DO [id number] AND PATIENT WILL GO SKILLED. PLEASE RE-CONSULT SHOULD MEDICAL STATUS CHANGE.
--- NOTE | 2018-03-31 18:14 | NUR ---
PATIENT HAS BEEN ALERT AND ORIENTED TODAY VERY PLEASANT. UP WITH ASSIST OF 1 OR 2. HAS BEEN IN CHAIR MOST OF THE DAY. NO COMPLAINTS OF PAIN TODAY. PATIENT IS WAITING ON INSURANCE AUTHORIZATION TO GO TO SKILLED. VITAL SIGNS HAVE BEEN STABLE ON ROOM AIR TODAY. CALL LIGHT IS IN REACH WILL CONTINUE TO MONITOR.
[2018-04-01 04:00] VITALS: BP 157/58
--- NOTE | 2018-04-01 05:47 | NUR ---
PT AAOX4 RESP REG AND UNLABORED SKIN W/D NO ACUTE DISTRESS NOTED.`TELEMETRY PACK INTACT WITH ALARMS SET. PT SLEPT WELL TONIGHT AND STATED SHE FEELS MUCH STRONGER TODAY. VSS AND NO ACUTE CHANGES DURIGN SHIFT WILL CONTINUE TO MONITOR
[2018-04-01 08:15] VITALS: BP 132/49
--- NOTE | 2018-04-01 09:47 | NUR ---
Pt discharging to [facility] skilled today, facility to apple picking supervisor at 12. Faxed dc orders. Chart copied. Nurse report number provided, [phone]. Left voicemail for Pt's son.
--- NOTE | 2018-04-01 10:12 | NUR ---
ASSUMED PT CARE AT 0730, FULL ASSESMENT DONE CHARTED.PT A/O X4, PT GETS ANXIOUS WHEN TRYING TO AMBULATE WITH STAFF, SNAPS AT STAFF WHEN TRYING TO HELP HER. PT UP TO CHAIR AFTER BREAKFAST WITH 2 ASSIST. PT DENIES PAIN, BS 44 THIS AM, JUICE GIVEN, RECHECK BS 147. PT TO DISCHARGE TO [facility] TODAY AT NOON. WILL CONTINUE WITH PLAN OF CARE.
[2018-04-01 10:37] VITALS: BP 132/49
--- NOTE | 2018-04-01 11:57 | NUR ---
CALLED REPORT TO [facility], PT DISCHARGED WITH TRANSPORTER AT APPROX 1155 BY WC
--- NOTE | 2018-04-08 13:47 | CON ---
[facility] [address] [place] [address] CONSULTATION Name: TONY VANN Room: [address] IN M.R.#: [id number] Admission: 03/25/18 Attend Phys: Ann-Marie He Discharge: 04/01/18 Date of : 37 Report #: [id number] THIS REPORT FOR: //name// CC: Ken Mcelroy This is an evaluation and consultation regarding post-acute rehabilitation post cerebrovascular accident. The patient is refusing rehabilitation at this time and is discharging to the home setting, therefore, further consultation was not completed or billed at this time. <ELECTRONICALLY SIGNED> By: Alba Leblanc DO 04/08/18 1347 [id number] [id number] e Leblanc DO /alex
== END 2018-04-01 11:54 | DRG 64 ==
LOC: M.ERS 23:03 → M.2W 03-25 00:54 → M.TBA-ER 03-25 00:54 → M.2W 03-25 02:45
PROVIDERS: Family Medicine; Internal Medicine; Personal Emergency Response Attendant; ADMIT Internal Medicine
DX: I63.211 Cerebral infarction due to unspecified occlusion or stenosis of right vertebral artery (principal); G92 Toxic encephalopathy; I63.8 Other cerebral infarction; N18.3 Chronic kidney disease, stage 3 (moderate); E11.649 Type 2 diabetes mellitus with hypoglycemia without coma; T38.3X5A Adverse effect of insulin and oral hypoglycemic [antidiabetic] drugs, initial encounter; I25.10 Atherosclerotic heart disease of native coronary artery without angina pectoris; E11.42 Type 2 diabetes mellitus with diabetic polyneuropathy; E78.5 Hyperlipidemia, unspecified; I12.9 Hypertensive chronic kidney disease with stage 1 through stage 4 chronic kidney disease, or unspecified chronic kidney disease; M48.061 Spinal stenosis, lumbar region without neurogenic claudication; D50.9 Iron deficiency anemia, unspecified; K59.00 Constipation, unspecified; Z79.4 Long term (current) use of insulin; Z90.11 Acquired absence of right breast and nipple; I25.2 Old myocardial infarction; Z95.5 Presence of coronary angioplasty implant and graft; Z90.710 Acquired absence of both cervix and uterus; Z90.49 Acquired absence of other specified parts of digestive tract; Z82.49 Family history of ischemic heart disease and other diseases of the circulatory system

== ENCOUNTER 2018-10-17 10:04 | Emergency (ER) | payer OTHER, MEDICAID ==
[~2018-10-17] VITALS: Ht 162.6 cm; Wt 83.5 kg
[2018-10-17] MEDS ORDERED: TRAMADOL 50 MG50 MG PO (10:35)
[2018-10-17] MEDS ORDERED: REQUIP0.5 MG PO (10:40)
[2018-10-17] MEDS ORDERED: VITAMIN D3400 UNIT PO (10:44)
[2018-10-17 10:55] LABS: ABSOLUTE BASOPHILS 0.2 thou/uL (0.0-0.2); ABSOLUTE EOSINOPHILS 0.3 thou/uL (0.0-0.7); ABSOLUTE LYMPHOCYTES 2.3 thou/uL (0.8-5.3); ABSOLUTE MONOCYTES 0.7 thou/uL (0.0-1.2); ABSOLUTE NEUTROPHILS 4.8 thou/uL (1.6-8.1); BASOPHILS 2.1 %; EOSINOPHILS 3.9 %; HEMATOCRIT 36.3 % (37.0-47.0); HEMOGLOBIN 11.6 gm/dL (12.0-15.0); LYMPHOCYTES 28.1 %; MCH 24.6 pg (26.0-34.0); MCHC 31.9 g/dL (28.0-37.0); MONOCYTES 8.8 %; MPV 8.7 fl. (7.2-11.1); NUCLEATED RBCS 0 /100WBC; PLATELET COUNT* 267 thou/uL (150-400); POLYS 57.1 %; RBC 4.71 mil/uL (4.20-5.00); RDW-CV 19.6 % (10.5-14.5); WBC 8.3 thou/uL (4.0-11.0)
[2018-10-17 11:02] LABS: URINE BILIRUBIN NEGATIVE (Negative); URINE BLOOD NEGATIVE (Negative); URINE CLARITY CLEAR; URINE COLOR YELLOW; URINE GLUCOSE-RANDOM NEGATIVE (Negative); URINE KETONES NEGATIVE (Negative); URINE LEUKOCYTES-REFLEX NEGATIVE (Negative); URINE NITRITE-REFLEX NEGATIVE (Negative); URINE PROTEIN NEGATIVE (Negative); URINE UROBILINOGEN 0.2 E.U./dl (0.2-1.0)
[2018-10-17 11:08] LABS: ALBUMIN 2.9 g/dL (3.4-5.0); CALCIUM 8.9 mg/dL (8.5-10.1); CREATININE 1.7 mg/dL (0.6-1.3); POTASSIUM 4.3 mmol/L (3.5-5.1); TOTAL BILIRUBIN 0.4 mg/dL (<0.1-1.0); TOTAL PROTEIN 7.5 g/dL (6.4-8.2)
[2018-10-17 13:09] VITALS: BP 128/55
== END 2018-10-17 13:09 | disposition home or self-care (01) ==
LOC: M.ERS 10:04
PROVIDERS: Personal Emergency Response Attendant
DX: M25.561 Pain in right knee (principal); I12.9 Hypertensive chronic kidney disease with stage 1 through stage 4 chronic kidney disease, or unspecified chronic kidney disease; E11.22 Type 2 diabetes mellitus with diabetic chronic kidney disease; N18.3 Chronic kidney disease, stage 3 (moderate); E11.42 Type 2 diabetes mellitus with diabetic polyneuropathy; E78.5 Hyperlipidemia, unspecified; I25.10 Atherosclerotic heart disease of native coronary artery without angina pectoris; Z86.73 Personal history of transient ischemic attack (TIA), and cerebral infarction without residual deficits; Z90.11 Acquired absence of right breast and nipple; Z95.5 Presence of coronary angioplasty implant and graft; Z90.710 Acquired absence of both cervix and uterus; Z90.49 Acquired absence of other specified parts of digestive tract; Z79.4 Long term (current) use of insulin; W18.39XA Other fall on same level, initial encounter; Y93.89 Activity, other specified; Y92.121 Bathroom in nursing home as the place of occurrence of the external cause; Y99.8 Other external cause status

== ENCOUNTER 2019-12-30 09:05 | Inpatient (IN) | payer MEDICARE, MEDICAID ==
[~2019-12-30] VITALS: Ht 167.6 cm; Wt 91.6 kg
[~2019-12-30 09:05] MED LIST changes: +REQUIP 0.25 M0.25 M1 PO; +TRAMADOL 50 MG50 MG PO; +VITAMIN D310 MC2 PO
[2019-12-30 09:06] VITALS: BP 194/73
[2019-12-30] MEDS ORDERED: BASAGLAR K100 UNIT/1 SUBQ (09:35)
[2019-12-30] MEDS ORDERED: TOLTERODINE TART2 M1 PO (09:37)
[2019-12-30 09:47] LABS: BE -2.7 mmol/L (-2 to +3); PCO2 35.5 mmHg (35.0-45.0); PO2 75.2 mmHg (75.0-100.0)
[2019-12-30 10:09] LABS: ABSOLUTE LYMPHOCYTES 1.5 thou/uL (0.8-5.3); ABSOLUTE MONOCYTES 0.5 thou/uL (0.0-1.2); ABSOLUTE NEUTROPHILS 8.3 thou/uL (1.6-8.1); BASOPHILS 0.5 %; HEMATOCRIT 37.4 % (37.0-47.0); HEMOGLOBIN 12.1 gm/dL (12.0-15.0); LYMPHOCYTES 14.7 %; MCHC 32.3 g/dL (28.0-37.0); MCV 80.6 fL (80.0-100.0); MONOCYTES 4.6 %; MPV 9.8 fl. (7.2-11.1); NUCLEATED RBCS 0 /100WBC; PLATELET COUNT* 243 thou/uL (150-400); POLYS 80.2 %; RBC 4.64 mil/uL (4.20-5.00); WBC 10.4 thou/uL (4.0-11.0)
--- NOTE | 2019-12-30 10:18 | NUR ---
IV ATTEMPT X2 PER THIS NURSE UNSUCCESSFUL. ATTEMPTED IV LOCATED AT LEFT AC AND LEFT THUMB, UNSUCCESSFUL. [facility] [employer] STARTED A 20G LEFT UPPER ARM MIDLINE AT 1005
[2019-12-30 10:34] LABS: CREATININE 3.3 mg/dL (0.6-1.3)
[2019-12-30 10:44] LABS: ALBUMIN 3.2 g/dL (3.4-5.0); TOTAL BILIRUBIN 0.5 mg/dL (<0.1-1.0); TOTAL PROTEIN 8.8 g/dL (6.4-8.2)
[2019-12-30 10:45] LABS: POTASSIUM 5.5 mmol/L (3.5-5.1)
[2019-12-30 10:46] LABS: APTT 24.5 Seconds (25.0-31.3); INR 1.1; PROTIME 10.9 Seconds (9.20-11.50)
[2019-12-30 11:01] LABS: URINE BILIRUBIN NEGATIVE (Negative); URINE BLOOD TRACE (Negative); URINE CLARITY CLEAR; URINE COLOR YELLOW; URINE GLUCOSE-RANDOM 2+ (Negative); URINE KETONES NEGATIVE (Negative); URINE LEUKOCYTES-REFLEX NEGATIVE (Negative); URINE NITRITE-REFLEX NEGATIVE (Negative); URINE PROTEIN NEGATIVE (Negative); URINE UROBILINOGEN 0.2 E.U./dl (0.2-1.0)
[2019-12-30 12:27] VITALS: BP 200/86
--- NOTE | 2019-12-30 12:27 | NUR ---
PT HAVING LIQUID DIARRHEA X5, PERICARE PROVIDED
[2019-12-30 13:30] VITALS: BP 117/55
--- NOTE | 2019-12-30 14:58 | EKG ---
[place] [address] ELECTROCARDIOGRAM REPORT Name: SOOTONY Surjit Room: [address] ADM IN M.R.#: [id number] Admission: 12/30/19 Attend Phys: Thanh Sharif Discharge: Date of : 37 Date of Service: 12/30/19911 Report #: [id number] THIS REPORT FOR: //name// [facility] ED Test Date: 2019-12-30 Test Time: 09:12:42 Pat Name: TONY VANN Department: Room: [facility] Gender: F Intensive Care Medicine Specialist: [place] : [id number] Requested By: Elenita Orozco Order Number: [id number] MD: Gary Garcia Measurements Intervals Baldwin Rate: 44 P: 48 SD: 173 QRS: -19 QRSD: 116 T: 74 QT: 519 QTc: 444 Interpretive Statements Sinus bradycardia and arrhythmia Atrial premature complexes Nonspecific intraventricular conduction delay Compared to ECG 03/26/2018 10:07:12 Intraventricular conduction delay now present Sinus rhythm no longer present Electronically Signed On 12-30-2019 14:56:21 CDT by Gary Garcia [email or web address] <ELECTRONICALLY SIGNED> By: Gary Garcia MD, [facility] 12/30/19 1456 1 1 Gary Garcia MD, [facility] /EPI
--- NOTE | 2019-12-30 16:03 | NUR ---
ASSUMED PT CARE REPORT RECEIVED FROM NURSE. PT IS ALERT, AWAKE, UNABLE TO ASSESS HER ORIENTATION BECAUSE PT DOES NOT EXPRESS HERSELF WELL. SHE KEEPS REPEATING HERSELF. ON 2 L NS. TRACING SINUS RYTHM ON SURVEYOR HELPER. IV NS HANGED AND INFUSING AT 100CC PER HOUR. TIAMINE BAG HANGED. KAYEXALATE OFFERED. BUT PT REFUSED TO DRINK IT. WILL TRY AGAIN LATER. CARDIO AND NEPHRO CONSULTED. PER NEPHRO, TO BLADDER SCAN PT AND INSERT ABRAHAM IF RETENTION GREATER THAN 300 CC. BLADDER SCAN WAS DONE AND URINARY RETENTION WAS 400 CC. ABRAHAM INSERTED ORDERED. LACTIC ACID BEING MONITORED. IV MIDLINE IS PATENT. RENAL US ORDERED PER NEPHRO ORDER. PT MAINTAINED ON 2 L NC. CALL LIGHT AT REACH. WILL CONTINUE TO MONITOR. SAFETY PROTOCOL IN PLACE.
--- NOTE | 2019-12-30 16:18 | 2DMMODE ---
[place] [address] 2 D/M-MODE ECHOCARDIOGRAM Name: TONY VANN Room: [address] IN M.R.#: [id number] Admission: 12/30/19 Attend Phys: Thanh Sharif Discharge: Date of : 37 Date of Service: 12/30/19 1615 Report #: [id number] THIS REPORT FOR: cc: Jorge Ellsworth MD, Srinath MD [place],Rohith Mace MD [facility] ~ APPROVED REPORT Study performed: 12/30/2019 15:15:02 EXAM: Comprehensive 2D, Doppler, and color-flow Echocardiogram Patient Location: In-Patient BSA: 1.95 HR: 91 bpm BP: 117/55 mmHg Other Information Study Quality: Technically Difficult Technically limited study due to body habitus, inability to position patient, uncooperative patient. Indications Dyspnea 2D Dimensions IVSd: 12.42 (7-11mm) LVOT Diam: 17.02 (18-24mm) LVDd: 26.55 mm PWd: 11.40 (7-11mm) Ascending Ao: 29.19 (22-36mm) LVDs: 22.33 (25-40mm) Aortic Root: 25.63 mm Aortic Valve AoV Peak Shaq.: 1.03 m/s AO Peak Gr.: 4.28 mmHg LVOT Max P.04 mmHg AO Mean Gr.: 2.69 mmHg LVOT Mean P.07 mmHg LVOT Max V: 0.71 m/s AO V2 VTI: 23.34 cm LVOT Mean V: 0.49 m/s JOSE JUAN (VTI): 1.83 cm2 LVOT V1 VTI: 18.75 cm Mitral Valve E/A Ratio: 0.75 MV Decel. Time: 145.04 ms MV E Max Shaq.: 0.69 m/[place] [address] 2 D/M-MODE ECHOCARDIOGRAM Name: TONY VANN Room: [address] IN ..#: [id number] Admission: 12/30/19 Attend Phys: Thanh Sharif Discharge: Date of : 37 Date of Service: 12/30/19 1615 Report #: [id number] MV PHT: 42.06 ms MVA (PHT): 5.23 cm2 TDI E/Lateral E': 9.86 E/Medial E': 17.25 Medial E' Shaq.: 0.04 m/s Lateral E' Shaq.: 0.07 m/s Pulmonary Valve PV Peak Shaq.: 1.00 m/s PV Peak Gr.: 3.99 mmHg Tricuspid Valve RAP Estimate: 5.00 mmHg TR Peak Gr.: 42.92 mmHg RVSP: 47.92 mmHg PA Pressure: 47.92 mmHg Left Ventricle The left ventricle is normal size. There is normal LV segmental wall motion. Mild concentric left ventricular hypertrophy. Left ventricular systolic function is vigourous. LVEF is 65-70%. Transmitral Doppler flow pattern suggests impaired LV relaxation. Right Ventricle The right ventricle is normal size. The right ventricular systolic function is normal. Atria The left atrium size is normal. Interatrial septum not well visualized. The right atrium size is normal. Aortic Valve The aortic valve is normal in structure. No aortic regurgitation is present. There is no aortic valvular stenosis. Mitral Valve The mitral valve is normal in structure. There is no mitral valve regurgitation noted. No evidence of mitral valve stenosis. Tricuspid Valve The tricuspid valve is normal in structure. Trace tricuspid regurgitation. Pulmonic Valve The pulmonary valve is normal in structure. There is no pulmonic [place] [address] 2 D/M-MODE ECHOCARDIOGRAM Name: VIRY VANNRYLAN Eddy Room: [address] IN .R.#: [id number] Admission: 12/30/19 Attend Phys: Thanh Sharif Discharge: Date of : 37 Date of Service: 12/30/19 1615 Report #: [id number] Great Vessels The aortic root is normal in size. IVC is not visualized. Pericardium There is no pericardial effusion. <Conclusion> The left ventricle is normal size. Mild concentric left ventricular hypertrophy. Left ventricular systolic function is vigourous. LVEF is 65-70%. Transmitral Doppler flow pattern suggests impaired LV relaxation. <ELECTRONICALLY SIGNED> By: Rohith Stokes MD, FACC 12/30/19 1615 1615 1615 Rohith Stokes MD, FACC /INF
[2019-12-30 17:17] VITALS: BP 150/63
--- NOTE | 2019-12-30 18:34 | NUR ---
PT VOMITTED SMALL MUCUS LIKE EMESIS CLEAR AND GREEN COLORED. ZOFRAN GIVEN. THEN PT COMPLAINS OF PAIN IN RIGHT LEG. FENTANYL GIVEN. PATIENT HEAD OF BED KEPT ELEVATED AT 90 DEGREE TO PREVENT ASPIRATION. IV NORMAL SALINE INFUSING AT 100 PER HOUR. LACTIC ACID LAB RECHECKED ORDERED. PT IS STILL NOT COOPERATIVE IN SPEECH. PATIENT WORDS DO NOT MAKE SENSE. ABRAHAM IN PLACE. PT STILL NOT IN A STATE TO DRINK KAYEXALATE. ACCUCHECK 330. GLARGINE AND LISPRO GIVEN ORDERED. SAFETY IN PLACE. WILL CONTINUE TO MONITOR PT.
[2019-12-30 19:29] LABS: BE -0.1 mmol/L (-2 to +3); PCO2 VENOUS 36.9 mmHg (41.0-51.0); PO2 VENOUS 137.3 mmHg (35.0-45.0)
[2019-12-30 20:30] VITALS: BP 127/64
[2019-12-30 22:35] LABS: POTASSIUM 3.6 mmol/L (3.5-5.1)
[2019-12-30 22:36] LABS: CALCIUM 8.8 mg/dL (8.5-10.1); CREATININE 2.3 mg/dL (0.6-1.3)
[2019-12-31 00:29] VITALS: BP 128/55
[2019-12-31 04:00] VITALS: BP 101/43
--- NOTE | 2019-12-31 06:06 | NUR ---
PATIENT SLEPT PART OF THE NIGHT. PATIENT WAS YELLING OUT FIRST FEW HOURS OF THE SHIFT SAYING LORD PLEASE HELP ME OVER AND OVER. SHE WAS COMPLAINING OF RIGHT LEG PAIN PAIN MEDS DID NOT SEEM TO BE HELPING. DOCTOR WAS NOTIFIED AND MORPHINE WAS GIVEN. PATIENT WAS ABLE TO REST COMFORTABLY AFTER THAT WAS GIVEN. ABRAHAM REMAINS TO DEPENDENT DRAIN. IV FLUIDS CONTINUE TO INFUSE ORDERED. WILL CONTINUE TO MONITOR.
[2019-12-31 08:00] VITALS: BP 107/53
[2019-12-31 12:50] VITALS: BP 105/60
[2019-12-31 15:24] LABS: ABSOLUTE BASOPHILS 0.1 thou/uL (0.0-0.2); ABSOLUTE MONOCYTES 0.8 thou/uL (0.0-1.2); ABSOLUTE NEUTROPHILS 6.9 thou/uL (1.6-8.1); BASOPHILS 0.6 %; EOSINOPHILS 0.2 %; HEMATOCRIT 33.2 % (37.0-47.0); HEMOGLOBIN 10.4 gm/dL (12.0-15.0); LYMPHOCYTES 20.3 %; MCH 25.6 pg (26.0-34.0); MCHC 31.3 g/dL (28.0-37.0); MCV 81.9 fL (80.0-100.0); MONOCYTES 7.9 %; MPV 8.6 fl. (7.2-11.1); NUCLEATED RBCS 1 /100WBC; PLATELET COUNT* 192 thou/uL (150-400); RBC 4.05 mil/uL (4.20-5.00); RDW-CV 18.7 % (10.5-14.5); WBC 9.7 thou/uL (4.0-11.0)
[2019-12-31 16:11] LABS: ALBUMIN 2.7 g/dL (3.4-5.0); CALCIUM 8.8 mg/dL (8.5-10.1); CREATININE 1.9 mg/dL (0.6-1.3); MAGNESIUM 1.9 mg/dL (1.8-2.4); POTASSIUM 4.4 mmol/L (3.5-5.1); TOTAL BILIRUBIN 0.5 mg/dL (<0.1-1.0); TOTAL PROTEIN 6.6 g/dL (6.4-8.2)
[2019-12-31 16:12] LABS: % SATURATION 9 % (20-39); IRON 22 ug/dL (50-175)
--- NOTE | 2019-12-31 16:16 | NUR ---
CM spoke with son via phone. Per son, Pt is normally A&O, resides at [facility] and plans for her to return there at sd. CM spoke with Admissions at [facility], they are able to accept Pt back, hope to be able to skill her. Therapy evals pending. Pt is [place] bound, but able to stand and transfer per son. Following [facility] p:[phone]
--- NOTE | 2019-12-31 16:42 | NUR ---
PT HAS RESTED T/O SHIFT.C/O PAIN TO BLE. EXCLAIMS LOUDLY "OH LORD, HELP ME", WHEN SHE STARTS TO HURT. IV PAIN MEDICATIONS HELP WITH RELIEF. PT HAS REFUSED MEALS TODAY. MORNING INSULIN AND METOPROLOL HELD. PT BP IS DECRAESED THIS EVENING. PHYSICIAN WILL ADRESS. ST ASSESSED PT AND HAS CHANGED DIET TO MECH GROUND AND THIN LIQUIDS. PT IS SR ON THE MONITOR. WCTM
[2019-12-31 17:23] VITALS: BP 92/44
[2019-12-31 20:00] VITALS: BP 121/50
[2020-01-01 00:26] VITALS: BP 87/52
[2020-01-01 04:20] VITALS: BP 94/42
--- NOTE | 2020-01-01 05:08 | NUR ---
PT COMPLAINS OF R LEG PAIN RATED 10, PAIN MEDS GIVEN PER MAR WITH MILD RELIEF. LEG REPOSITION, AND COLD COMPRESS APPLIED, PT STATE IT HELPS WITH THE PAIN, NOTED SLEEPING AFTER. IVF INFUSING ORDERED. ABRAHAM CATH DRAINING WELL. IV MIDLINE INTACT. Q2 TURN, HOURLY ROUNDING, WILL CONTINUE TO MONITOR.
[2020-01-01 08:00] VITALS: BP 128/49
[2020-01-01 12:00] VITALS: BP 85/35
--- NOTE | 2020-01-01 15:55 | NUR ---
pt sleeping in chair, after meloxicam stated she no longer was having any pain.
[2020-01-01 16:00] VITALS: BP 99/49
[2020-01-01 20:00] VITALS: BP 88/35
--- NOTE | 2020-01-02 00:17 | NUR ---
LAB ATTEMPTED TO OBTAIN LACTIC ACID DRAW AGAIN. UNABLE TO OBTAIN. LAB WILL ATTEMPT AGAIN IN AM.
[2020-01-02 00:50] VITALS: BP 116/63
[2020-01-02 04:24] VITALS: BP 104/31
--- NOTE | 2020-01-02 05:04 | NUR ---
PATIENT PROGRESSING TOWARDS GOALS: PATIENT DENIED PAIN UNTIL APPROX 0330, STATES THAT "THE NEW MEDICATION SHE RECEIVED YESTERDAY WAS VERY EFFECTIVE." PATIENT HAS RECEIVED TRAMADOL AND MORPHINE THIS MORNING AND LEG WRAPPED WITH WARM BLANKETS. PAIN RELIEVED AND PATIENT SLEEPING AT THIS TIME. PATIENT DENIES NAUSEA. CALL LIGHT WITHIN REACH
--- NOTE | 2020-01-02 07:48 | CON ---
[address] [address] CONSULTATION Name: SOOTONY M Room: [address] IN M.R.#: [id number] Admission: 12/30/19 Attend Phys: Surjit Lee Discharge: Date of : 37 Report #: [id number] THIS REPORT FOR: //name// cc: Jorge Ellsworth MD, Srinath MD ~ THIS REPORT FOR: //name// CC: Thanh Ellsworth DATE OF SERVICE: 12/31/2019 NEPHROLOGY CONSULTATION CONSULTING PHYSICIAN: Thanh Sharif MD REASON FOR NEPHROLOGY CONSULTATION: Acute kidney injury and hyperkalemia. CHIEF COMPLAINT: Nausea, vomiting and diarrhea. HISTORY OF PRESENT ILLNESS: This is an 84-year-old female with past medical history of type 2 diabetes and probably chronic kidney disease as well and other medical problems who was brought into the hospital because she has been having nausea, vomiting and diarrhea and her blood glucose was running high, it was running in 500s. She was found to have a potassium of 5.5 and creatinine was 3.3. We do have a baseline creatinine of 1.7 on her from September of last year. Garcia catheter was placed and she did have 2100 mL of urine out since it was placed yesterday evening. Her blood glucose is better and she also feels better this morning. She is not complaining of nausea, vomiting and diarrhea. She was also started on IV fluids yesterday and her creatinine has improved to 2.3 today from 3.3 and potassium is improved to 3.6 today. At home in addition to other medications, she takes losartan, hydrochlorothiazide and potassium is also mentioned in the medication list. She denies taking any NSAIDs. She could have been taking Lasix, but we not sure about that. Her blood pressure was also high when she came in 200 systolic, but it has improved this morning, in fact, running a little bit low as 101/43 this morning. ALLERGIES: No known allergies. REVIEW OF SYSTEMS: As mentioned in history of present illness. She reports no history of kidney stones and otherwise, a 10-point review of systems done, negative. PAST MEDICAL HISTORY: Includes hypertension, type 2 diabetes. She does not know if she has retinopathy or not. It looks like she has chronic kidney disease at least stage 3, history of strokes [place] [address] CONSULTATION Name: TONY VANN Surjit Room: [address]#: [id number] Admission: 12/30/19 Attend Phys: Surjit Lee Discharge: Date of : 37 Report #: [id number] stents in 2005, hysterectomy, cholecystectomy, recent discharge from [facility] with right hemispheric CVA, peripheral neuropathy, peripheral vascular disease with carotid stenosis, dyslipidemia, diverticulitis, TIA in 06/2017. PAST SURGICAL HISTORY: As mentioned above. HOME MEDICATIONS: Include allopurinol, simvastatin, metoprolol, losartan and hydrochlorothiazide 100/25 mg a day, aspirin 81 mg a day, potassium chloride 20 mEq a day, insulin, gabapentin, tramadol, ropinirole, cholecalciferol, insulin glargine, tolterodine. FAMILY HISTORY: Limited review from the patient's chart. The patient was not able to provide me that history. SOCIAL HISTORY: She lives at home. She does not smoke or drink alcohol or use illicit drugs. PHYSICAL EXAMINATION: VITAL SIGNS: Her blood pressure is 107/53, her respiratory rate was 18, her pulse rate was 81, her temperature was 37.1, her pulse ox was 96% on no oxygen. GENERAL: She is awake and alert and oriented x 3. HEAD AND EYES: Atraumatic, normocephalic. Normal conjunctivae. EARS, NOSE, AND THROAT: Normal ears and nose. Mucous membranes are moist. NECK: There was no JVD. CHEST: Bilaterally diminished breath sounds anteriorly, but no crackles heard. CARDIOVASCULAR: S1, S2 normal. No murmurs heard. ABDOMEN: Soft, nondistended, nontender. Bowel sounds are present. EXTREMITIES: Lower extremities, there was trace edema in bilateral lower extremities. NEUROLOGIC: Grossly intact. PSYCHIATRIC: Mood and affect seems to be normal. LABORATORY DATA: WBC 10.4, hemoglobin is 12.1, platelet count is 243. Sodium is 138, potassium is 3.6, BUN is 40, creatinine is 2.3, down from 3.3 yesterday and other labs were reviewed. IMAGING: Renal ultrasound and chest x-ray were reviewed. ASSESSMENT: 1. Acute kidney injury on chronic kidney disease stage 3 because of hyperglycemia, intravascular volume depletion, use of losartan and hydrochlorothiazide at home and her blood pressure was also running towards the higher side and she has been having nausea, vomiting and diarrhea. Her creatinine was 1.7 September of last year and creatinine was 3.3 on admission, down to 2.3 with IV fluids. Her urine only showed trace blood, but no significant rbc's and renal imaging showed mild left pelviectasis, but [place] [address] CONSULTATION Name: TONY VANN Room: [address]#: [id number] Admission: 12/30/19 Attend Phys: Surjit Lee Discharge: Date of : 37 Report #: [id number] lot of urine came out after Garcia catheter was placed yesterday, so it is possible that she could be retaining some urine as well. She does take tolterodine at home, which is something that I am going to put on hold for now. 2. Hyperkalemia in the setting of hyperglycemia and acute renal insufficiency and use of potassium and losartan at home. It has improved. It was 5.5 on admission. 3. Hyperglycemia. She has history of diabetes. We will defer to primary team for management of that. 4. Hypertension. Blood pressure was high when she came in. It is running towards the lower side now. 5. Ejection fraction was checked during this admission showed ejection fraction 65-70% with diastolic dysfunction. 6. Fluid distention behind urinary bladder on renal ultrasound. We will defer to primary team to further evaluate that. 7. History of recent cerebrovascular accident. 8. She had mild lactic acidosis, which is improved. PLAN: 1. Continue normal saline, but decrease the rate to 75 mL an hour and fluids can be stopped once she is taking orally sufficiently. 2. Be careful once the Garcia catheter is removed. Please monitor her urinary retention. I will be holding her tolterodine for now. 3. Keep holding losartan, hydrochlorothiazide and potassium supplementation. 4. Careful use of morphine in the setting of renal insufficiency. 5. So far, labs are improving with fluids. She might need repeat renal imaging as outpatient. 6. Fluid distention behind her urinary bladder. We will defer to primary team for management of that. 7. Try to keep a MAP around 65-70. 8. Avoid nephrotoxic agents. Thank you for this consultation. There is nothing else to add from a renal standpoint. I will be signing off now and she should follow up with us in our office in 3-4 weeks after discharge. Discussed with the patient's nurse and the patient. <ELECTRONICALLY SIGNED> By: Tasia Guzman MD 01/02/20 0748 0916 [id number] Guzman MD /nt
[2020-01-02 08:00] VITALS: BP 156/80
--- NOTE | 2020-01-02 08:00 | NUR ---
AM ASSESSMENT COMPLETE, DEFER TO COMPUTER CHARTING. INFORMATION SERVICES MANAGER TRACKING SR. REPORTING HAVING RIGHT LEG/FOOT PAIN, WILL GIVE REPEAT PAIN MEDICATION TO ASSIST WITH PAIN CONTROL ORDERED. CALL LIGHT WITHIN REACH.
[2020-01-02 09:26] LABS: CALCIUM 8.4 mg/dL (8.5-10.1); CREATININE 2.2 mg/dL (0.6-1.3); POTASSIUM 4.5 mmol/L (3.5-5.1)
[2020-01-02 09:30] LABS: ABSOLUTE BASOPHILS 0.1 thou/uL (0.0-0.2); ABSOLUTE EOSINOPHILS 0.3 thou/uL (0.0-0.7); ABSOLUTE LYMPHOCYTES 3.2 thou/uL (0.8-5.3); ABSOLUTE MONOCYTES 1.1 thou/uL (0.0-1.2); BASOPHILS 1.2 %; EOSINOPHILS 2.3 %; LYMPHOCYTES 27.5 %; MCH 25.9 pg (26.0-34.0); MCHC 31.3 g/dL (28.0-37.0); MCV 82.5 fL (80.0-100.0); MONOCYTES 9.3 %; NUCLEATED RBCS 1 /100WBC; POLYS 59.7 %; RBC 4.25 mil/uL (4.20-5.00); RDW-CV 19.1 % (10.5-14.5); WBC 11.8 thou/uL (4.0-11.0)
[2020-01-02 10:04] LABS: PLATELET COUNT* 215 thou/uL (150-400)
[2020-01-02 12:00] VITALS: BP 104/85
[2020-01-02 16:00] VITALS: BP 80/35
[2020-01-02 20:30] VITALS: BP 116/53
[2020-01-03] VITALS: BP 88/35
[2020-01-03 04:00] VITALS: BP 129/44
[2020-01-03 04:08] LABS: HEMATOCRIT 32.3 % (37.0-47.0); HEMOGLOBIN 10.4 gm/dL (12.0-15.0); MCH 25.9 pg (26.0-34.0); MCHC 32.3 g/dL (28.0-37.0); MCV 80.4 fL (80.0-100.0); MPV 8.8 fl. (7.2-11.1); RBC 4.02 mil/uL (4.20-5.00); WBC 11.9 thou/uL (4.0-11.0)
[2020-01-03 04:38] LABS: ALBUMIN 2.3 g/dL (3.4-5.0); CALCIUM 8.3 mg/dL (8.5-10.1); CREATININE 1.8 mg/dL (0.6-1.3); MAGNESIUM 1.9 mg/dL (1.8-2.4); POTASSIUM 3.7 mmol/L (3.5-5.1); TOTAL BILIRUBIN 0.9 mg/dL (<0.1-1.0)
--- NOTE | 2020-01-03 05:43 | NUR ---
ASSESSMENT DOCUMENTED. MEDS GIVEN PER E-MAR. MIDLINE PATENT. PAIN MEDS GIVEN PER E-MAR WITH SOME RELIEF. PT YELLING OUT AT TIMES IN PAIN. PT REPOSITIONED THROUGH NIGHT. ABRAHAM IN PLACE. WILL CONTINUE WITH PLAN OF CARE.
[2020-01-03 08:00] VITALS: BP 146/59
--- NOTE | 2020-01-03 08:19 | NUR ---
Per review of therapy evals, pt will need skilled at dc. Pt is from [facility] to fax initial referral. CM asked rehabilitation services aide to have both PT/OT see Pt today, CM to fax updated therapy notes when available. [facility] p:[phone] f:[phone]
[2020-01-03 12:08] VITALS: BP 119/60
--- NOTE | 2020-01-03 13:52 | NUR ---
PT IS AOX4. ON RA. COMPLAINS OF PAIN IN RIGHT LOWER EXTREMITY. LEVEL 10. TRAMADOL GIVEN. PT HAS GOOD APPETITE. VSS. TRACING SR ON ESTIMATOR AND DRAFTER SUPERVISOR. UP WITH MAX ASSIST TO CHAIR. ABRAHAM IN PLACE FOR RETENTION. TESTING PERFOMRED ORDERED. ACCUCHECK. INSULIN GIVEN ORDERED PER SLIDING SCALE. MORPHINE GIVEN AND LIDOCAINE PATCH PLACED ON RIGHT KNEE ORDERED. NO FURTHER COMPLAINT. WILL CONTINUE TO MONITOR
[2020-01-03 16:14] VITALS: BP 122/66
[2020-01-03 20:00] VITALS: BP 123/48
[2020-01-04] VITALS: BP 133/62
[2020-01-04 04:00] VITALS: BP 139/55
--- NOTE | 2020-01-04 06:00 | NUR ---
ASSUMED PT CARE AT 1915. NURSING ASSESSMENT COMPLETED AT START OF SHIFT. SR ON LEAD MANUFACTURING ENGINEER. PRN PAIN MEDICATION ADMINISTERED THIS SHIFT, SEE EMAR FOR DUCUMENTATION. HOURLY ROUNDING COMPLETED. CALL LIGHT WITHIN REACH.
[2020-01-04 07:47] LABS: HEMATOCRIT 31.5 % (37.0-47.0); HEMOGLOBIN 10.3 gm/dL (12.0-15.0); MCHC 32.6 g/dL (28.0-37.0); MCV 79.9 fL (80.0-100.0); MPV 8.8 fl. (7.2-11.1); RBC 3.95 mil/uL (4.20-5.00); RDW-CV 18.5 % (10.5-14.5); WBC 10.4 thou/uL (4.0-11.0)
[2020-01-04 07:57] LABS: ALBUMIN 2.2 g/dL (3.4-5.0); CALCIUM 8.1 mg/dL (8.5-10.1); CREATININE 1.3 mg/dL (0.6-1.3); MAGNESIUM 1.7 mg/dL (1.8-2.4); POTASSIUM 3.6 mmol/L (3.5-5.1); TOTAL BILIRUBIN 0.6 mg/dL (<0.1-1.0)
[2020-01-04 08:00] VITALS: BP 141/40
--- NOTE | 2020-01-04 08:58 | NUR ---
CM asked workplace rehabilitation officer to have PT/OT see Pt today, Pt will need to be skilled at dc, facility will need to get insurance auth.
[2020-01-04 12:15] VITALS: BP 121/57
--- NOTE | 2020-01-04 14:55 | NUR ---
Nutrition: screen for LOS. Wt up from admit, and up from 2018. BUN 19, albumin 2.2. BG 128-251. Prednisone and other meds reviewed. Nsg noted pt with good po intake. No N/V. Assess at low nutrition risk.
[2020-01-04 16:04] VITALS: BP 157/85
--- NOTE | 2020-01-04 16:15 | NUR ---
PT IS IN EXCRUCIATING PAIN SINCE 0800. PAIN MEDICINE HAS BEEN GIVEN DURING THE SHIFT. PATIENT SEEMS TO BE RELIEVED, BUT FOR A SHORT TIME. PT IS ON RA. VSS. VASCULAR CONSULTED. THE CYBER INCIDENT ANALYST STATES SHE WILL BE IN HOSPITAL IN A COUPLE MINUTES FROM NOW. THIS NURSE SPOKE WITH THE PATIENT'S DAUGHTER AND EXPLAINED THE SITUATION TO HER. PT GOT OUT OF BED WITH ASSISTANCE. RECEIVED A BATH THIS AM WITH HELP. CALL LIGHT WITHIN REACH. WILL CONTINUE TO MONITOR PT
--- NOTE | 2020-01-04 18:50 | NUR ---
HEPARIN DRIP STARTED ORDERED. SEE CHART AND EMAR FOR WEIGHT BASED RATE. PAIN MEDICINE GIVEN
[2020-01-04 19:35] VITALS: BP 128/55
[2020-01-05] VITALS (7 sets, daily range): BP systolic 112–174; BP diastolic 39–86
--- NOTE | 2020-01-05 03:36 | NUR ---
ASSUMED CARE OF PT AT 1900. PT IS ALERT AND ORIENTED. VSS. PERRLA. PT REPORTS AN EXTREME AMT OF PAIN IN HER RIGHT LEG. PT RECIEVING PAIN MEDS. PT IS SINUS RYTHM ON THE TELEMETRY. PT IS RESTING COMFORTABLY IN BED. RESPIRATIONS ARE EVEN AND NONLABORED. WILL CONTINUE TO MONITOR PT.
[2020-01-05 08:32] LABS: CALCIUM 8.8 mg/dL (8.5-10.1); CREATININE 1.5 mg/dL (0.6-1.3)
[2020-01-05 08:33] LABS: POTASSIUM 4.7 mmol/L (3.5-5.1)
--- NOTE | 2020-01-05 08:52 | NUR ---
CM asked rehabilitation team lead to ask PT to see Pt today. Anticipate dc to skilled and need therapy evals so facility can initiate insurance auth. Anticipate dc either tomorrow or Friday.
--- NOTE | 2020-01-05 09:45 | NUR ---
assumed pt care report received from nurse pt is aox4 on ra. tracing sr on monitor car operator,. pt complains of pain level 10 in right leg. morphine given. pt is npo for cta today as ordered per vascular registry np. pt seating in bed . lidacaine patch applied on right lower extremity. pt up with 2 assist with a walker , leg excercises done with this nurse help. physical therapy has seen pt in room. will continue to monitor pt. call light within reach. antibiotics on hold until a new iv is placed. infusion nurse notified. will continue to monitor pt.
--- NOTE | 2020-01-05 11:43 | NUR ---
Faxed updated clinical info to [facility]. Pt to have CTA today, depending on that, we will know when Pt will be medically stable to dc. CM to update SNF post procedure to let them know when to initiate insurance auth. Following.
--- NOTE | 2020-01-05 11:47 | NUR ---
NE IV PLACED IN LEFT FOREARM. ROCEPHIN HANGED. FOBRA BOOT CONTRACTURE PLACED ON RIGHT FOOT ORDERED. WILL CONTINUE TO MONITOR PT. PT IS STILL NPO FOR CTA
--- NOTE | 2020-01-05 14:12 | NUR ---
MORPHINE GIVNE AGAIN. PT WENT DOWNSTAIR FOR A CT AT 1400.
[2020-01-06 04:53] VITALS: BP 120/48
--- NOTE | 2020-01-06 05:19 | NUR ---
PT SLEPT ON AND OFF THIS SHIFT. ASSESSMENT DOCUMENTED. MEDS GIVEN PER E-MAR. IV PATENT AND MIDLINE PATENT, HEPARIN DRIP INFUSING. PAIN MEDS GIVEN PER E-MAR WITH RELIEF. PT REMAINED NPO AFTER MIDNIGHT. WILL CONTINUE WITH PLAN OF CARE.
[2020-01-06 08:00] VITALS: BP 131/59
--- NOTE | 2020-01-06 11:31 | 2DMMODE ---
[place] [address] 2 D/M-MODE ECHOCARDIOGRAM Name: TONY VANN Room: [address] IN M.R.#: [id number] Admission: 12/30/19 Attend Phys: Thanh Sharif Discharge: Date of : 37 Date of Service: 01/06/20 1130 Report #: [id number] THIS REPORT FOR: cc: Jorge Ellsworth MD, Srinath MD [place],Rohith Mace MD [facility] ~ APPROVED REPORT Study performed: 01/06/2020 09:29:19 EXAM: Comprehensive 2D, Doppler, and color-flow Echocardiogram Patient Location: In-Patient BSA: 1.96 HR: 101 bpm BP: 131/59 mmHg Other Information Study Quality: Good Indications Thrombus in RLE Echo Enhancing Agent Indication: Rule out thrombus Agent(s) / Amount(s) Used: Optison 2 cc Left Ventricle The left ventricle is normal size. There is normal left ventricular wall thickness. The left ventricular systolic function is normal. LVEF is 65-70%. <Conclusion> The left ventricle is normal size. There is normal left ventricular wall thickness. The left ventricular systolic function is normal. LVEF is 65-70%. No evidence of intracardiac thrombus. <ELECTRONICALLY SIGNED> By: Rohith Stokes MD, FACC 01/06/20 1130 1130 1130 Rohith Stokes MD, FAC /INF
[2020-01-06 12:00] VITALS: BP 144/83
--- NOTE | 2020-01-06 12:26 | NUR ---
Pt to have an open thrombectomy today. Updated admissions at [facility]
--- NOTE | 2020-01-06 13:45 | NUR ---
ASSUMED PT CARE AT 0730, PT CRYING OUT IN BED ABOUT BILAT LE PAIN, PT TREATED W/ MORPHINE Q4H W/ NO RELIEF. DR BUCK CONSULTED AND ORDERS RECEIVED FOR DILAUDID WHICH WAS GIVEN TO PT W/ NO RELIEF. SURGERY SCHEDULED AT 1530 FOR RT. THROMBECTOMY, PT HAS BEEN NPO SINCE MIDNIGHT. PT HAS RT FOOT DROP BUT REFUSES TO WEAR BOOT. RT LIMB ALERT IN PLACE FOR HX RT MASTECTOMY. BILAT LE EDEMA NOTED, PT IS CHAIRBOUND AND HAS A ABRAHAM IN PLACE FOR RTN W/ YELLOW URINE DRAINING. PT GOAL IS TO HAVE SURGERY ON RLE AND DECREASE PAIN. AM ASSESSMENT CHARTED, MEDS PER MAR, HOURLY ROUNDING OBSERVED, BED IN LOW POSITION, BED ALARM ON, CALL LIGHT W/IN REACH, MOUTH SWABS GIVEN TO HELP W/ MOUTH DRYNESS, WILL CONTINUE POC.
--- NOTE | 2020-01-06 14:40 | NUR ---
Pt completed DPOA, appointed her son Shade Pineda III, updated both Shade and his sister. Faxed DPOA to [facility]
--- NOTE | 2020-01-06 15:25 | NUR ---
DR. HERNANDEZ HERE TO PRE-OP TO INTERVIEW PT. HE DISCUSSED WITH HER THE POSSIBILITY OF NEEDING TO AMPUTATE HER LEG VS. LOSING HER LIFE. HE ASKED HER IN MULTIPLE WAYS, WOULD SHE BE OK WITH AN AMPUTATION, AND SHE SAID NO VERY AFFIRMATIVELY EVERY TIME. DR. WILSON CAME BY LATER AND ALSO ASKED THE PT. AND SHE STILL SAID NO.
[2020-01-06 18:30] VITALS: BP 100/43
--- NOTE | 2020-01-06 18:59 | NUR ---
PT WENT DOWN TO SURGERY FOR RLE THROMBECTOMY AT APPROX 1505 AND CAME BACK AT 1830 AND ALMOST IMMEDIATELY STARTED CALLING OUT IN PAIN TO RLE, TREATED W/ PRN MORPHINE. VITALS CHARTED, SLIGHTLY ELEVATED TEMP (100.4), DR BUCK PAGED, AWAITING ORDERS. RT GROIN INCISION SITE C/D/I W/ NO HEMATOMA. MEDS PER SEP, HOURLY ROUNDING OBSERVED, FALL PRECAUTIONS IN PLACE, WILL CONTINUE POC.
[2020-01-06 21:08] VITALS: BP 135/46
[2020-01-06 23:05] VITALS: BP 121/46
[2020-01-07 04:00] VITALS: BP 97/57
[2020-01-07 06:54] LABS: URINE BILIRUBIN NEGATIVE (Negative); URINE BLOOD 1+ (Negative); URINE CLARITY CLEAR; URINE COLOR YELLOW; URINE GLUCOSE-RANDOM NEGATIVE (Negative); URINE KETONES TRACE (Negative); URINE LEUKOCYTES-REFLEX NEGATIVE (Negative); URINE NITRITE-REFLEX NEGATIVE (Negative); URINE PROTEIN 1+ (Negative); URINE UROBILINOGEN 0.2 E.U./dl (0.2-1.0)
[2020-01-07 07:26] LABS: BACTERIA-REFLEX 1-9 Few /HPF (None Seen); CRYSTALS None Seen /LPF (None Seen); FINE GRANULAR CASTS >10 Many /LPF (None Seen); MUCUS None Seen strn/LPF (None Seen); SQUAMOUS >10 Many /LPF (0-3); URINE WBC-REFLEX 0-5 Rare /HPF (0-5)
[2020-01-07 08:00] VITALS: BP 94/49
--- NOTE | 2020-01-07 08:23 | NUR ---
PT IS ABLE TO COMMUNICATE HER NEEDS TO STAFF WITH MINOR DIFFICULTY; SHE IS FORGETFUL AT TIMES AND SOMEWHAT [id number]. CURRENT PAIN MEDICATION HAS BEEN MARGINALLY ADEQUATE FOR CONTROLLING HER PAIN AT THIS TIME; REPOSITIONING HAS HELPED ALLEVIATE PAIN FURTHER. RIGHT GROIN INCISION SITE IS INTACT. HEPARIN GTT RESTARTED POST-OP PER MD ORDER ON CHART. ABRAHAM HAS BEEN PATENT UP TO THIS TIME.
[2020-01-07 10:10] LABS: ABSOLUTE BASOPHILS 0.1 thou/uL (0.0-0.2); ABSOLUTE EOSINOPHILS 0.1 thou/uL (0.0-0.7); ABSOLUTE LYMPHOCYTES 2.1 thou/uL (0.8-5.3); ABSOLUTE MONOCYTES 3.1 thou/uL (0.0-1.2); ABSOLUTE NEUTROPHILS 14.6 thou/uL (1.6-8.1); BASOPHILS 0.3 %; EOSINOPHILS 0.6 %; HEMATOCRIT 31.7 % (37.0-47.0); LYMPHOCYTES 10.6 %; MCH 25.2 pg (26.0-34.0); MCHC 31.4 g/dL (28.0-37.0); MCV 80.4 fL (80.0-100.0); MONOCYTES 15.3 %; MPV 8.5 fl. (7.2-11.1); NUCLEATED RBCS 0 /100WBC; PLATELET COUNT* 256 thou/uL (150-400); POLYS 73.2 %; RBC 3.95 mil/uL (4.20-5.00); RDW-CV 19.2 % (10.5-14.5)
[2020-01-07 10:24] LABS: CALCIUM 7.9 mg/dL (8.5-10.1)
[2020-01-07 10:26] LABS: CREATININE 2.9 mg/dL (0.6-1.3)
--- NOTE | 2020-01-07 10:52 | NUR ---
0809 ASSUMED CARE OF PATIENT. PLEASE SEE DOCUMENTED ASSESSMENT. PT IS COMFORTABLE AT THIS TIME LONG RIGHT LEG IS NOT MOVED.
[2020-01-07 11:52] VITALS: BP 103/74
[2020-01-07 15:53] VITALS: BP 119/51
--- NOTE | 2020-01-07 18:38 | NUR ---
PATIENT HAS MADE SOME PROGRESS TODAY WITH BETTER PAIN CONTROL. ABLE TO FEED SELF BUT FALLS ASLEEP. REFUSED THERAPY. PT SCREENS POSITIVE FOR SEPSIS AND ORDERS NOTED. REMAINS ON HEPARIN DRIP. OLIGURIC. O2 SAT WILL DRIFT DOWN BUT PATIENT NOT ALWAYS COMPLAINT WITH OXYGEN. NO FAMILY HAS CALLED THIS SHIFT.
[2020-01-07 20:00] VITALS: BP 149/72
[2020-01-08] VITALS: BP 100/49
--- NOTE | 2020-01-08 03:43 | NUR ---
PT ALERT ORIENTED. BR TURN Q 2 HRS. R GROIN WITH DURMABOND. SITE WITHOUT BRUSING. L UPPER ARM MID LINE AND LFA. O2 AT 2 LITERS NC. TRAMADOL GIVEN FOR R FOOT PAIN. FOOT WARM AND PAINFUL TO TOUCH. TELEMETRY SHOWS SR. HEPARIN QTT AT 1142 UNITS/HR. WCTM
[2020-01-08 04:00] VITALS: BP 136/86
[2020-01-08 04:19] LABS: HEMATOCRIT 31.7 % (37.0-47.0); HEMOGLOBIN 10.1 gm/dL (12.0-15.0); MCH 25.5 pg (26.0-34.0); MCV 79.6 fL (80.0-100.0); MPV 8.7 fl. (7.2-11.1); RBC 3.98 mil/uL (4.20-5.00); RDW-CV 19.6 % (10.5-14.5); WBC 23.8 thou/uL (4.0-11.0)
[2020-01-08 04:52] LABS: ALBUMIN 1.8 g/dL (3.4-5.0); CREATININE 3.8 mg/dL (0.6-1.3); POTASSIUM 4.5 mmol/L (3.5-5.1); TOTAL BILIRUBIN 0.4 mg/dL (<0.1-1.0); TOTAL PROTEIN 7.2 g/dL (6.4-8.2)
--- NOTE | 2020-01-08 07:20 | NUR ---
CHANGE OF SHIFT BEDSIDE REPORT GIVEN PATIENT SEEN AT BEDSIDE ASLEEP IN BED ASSUMED PATIENT CARE
[2020-01-08 08:00] VITALS: BP 108/52
[2020-01-08 12:00] VITALS: BP 83/42
[2020-01-08 16:00] VITALS: BP 109/52
[2020-01-08 20:00] VITALS: BP 102/61
[2020-01-09] VITALS: BP 106/64
--- NOTE | 2020-01-09 01:28 | NUR ---
PT DROWSEY EASILY AROUSABLE. TELEMETRY SHOWS SR. ABRAHAM WITH SMALL AMT YELLOW. HEPARIN QTT DCD. TURN Q 2 HRS. WCTM
[2020-01-09 04:00] VITALS: BP 106/77
[2020-01-09 04:15] LABS: HEMOGLOBIN 9.6 gm/dL (12.0-15.0); MCH 25.2 pg (26.0-34.0); MCV 78.6 fL (80.0-100.0); MPV 8.6 fl. (7.2-11.1); RBC 3.81 mil/uL (4.20-5.00); RDW-CV 19.5 % (10.5-14.5); WBC 23.5 thou/uL (4.0-11.0)
[2020-01-09 04:34] LABS: ALBUMIN 1.8 g/dL (3.4-5.0); CALCIUM 8.6 mg/dL (8.5-10.1); MAGNESIUM 2.1 mg/dL (1.8-2.4); POTASSIUM 3.8 mmol/L (3.5-5.1); TOTAL BILIRUBIN 0.4 mg/dL (<0.1-1.0); TOTAL PROTEIN 7.6 g/dL (6.4-8.2)
[2020-01-09 04:36] LABS: CREATININE 4.9 mg/dL (0.6-1.3)
--- NOTE | 2020-01-09 07:15 | NUR ---
CHANGE OF SHIFT, BEDSIDE REPORT GIVEN PATIENT SEEN AT BEDSIDE, IN BED ASLEEP ASSUMED PATIENT CARE
[2020-01-09 08:00] VITALS: BP 97/71
[2020-01-09 10:42] LABS: CALCIUM 7.9 mg/dL (8.5-10.1)
[2020-01-09 12:21] VITALS: BP 93/38
[2020-01-09 16:00] VITALS: BP 103/62
[2020-01-09 19:55] VITALS: BP 140/70
[2020-01-10] VITALS: BP 193/59
[2020-01-10 04:15] VITALS: BP 141/75
[2020-01-10 05:57] LABS: HEMATOCRIT 28.7 % (37.0-47.0); HEMOGLOBIN 9.3 gm/dL (12.0-15.0); MCH 25.2 pg (26.0-34.0); MCHC 32.3 g/dL (28.0-37.0); MPV 8.6 fl. (7.2-11.1); RBC 3.68 mil/uL (4.20-5.00); RDW-CV 19.2 % (10.5-14.5); WBC 20.7 thou/uL (4.0-11.0)
[2020-01-10 06:10] LABS: MAGNESIUM 2.1 mg/dL (1.8-2.4); PHOSPHORUS* 6.4 mg/dL (2.5-4.9); POTASSIUM 4.6 mmol/L (3.5-5.1)
[2020-01-10 06:17] LABS: CALCIUM 8.3 mg/dL (8.5-10.1); CREATININE 4.9 mg/dL (0.6-1.3); POTASSIUM 4.3 mmol/L (3.5-5.1); TOTAL BILIRUBIN 0.4 mg/dL (<0.1-1.0); TOTAL PROTEIN 7.2 g/dL (6.4-8.2)
--- NOTE | 2020-01-10 06:56 | NUR ---
VSS. SEE CHARTING FOR MORE INFO.
[2020-01-10 08:41] VITALS: BP 189/60
--- NOTE | 2020-01-10 12:00 | NUR ---
DISCUSSED WITH . HE SAID PROBABLY 2-3 MORE DAYS IN HOSPITAL. WILL UPDATE [facility] TOMORROW.
[2020-01-10 12:08] VITALS: BP 153/77
--- NOTE | 2020-01-10 13:12 | PATH ---
[facility] [address] [place] [address] PATHOLOGY RPT PROCEDURE Name: YUMIKO VANN Room: [address] IN .R.#: [id number] Admission: 12/30/19 Date of : 37 Discharge: Report #: [id number] Path Case #: [id number] LCA Accession Number: [id number] . 01 Material submitted: . leg - CLOT RIGHT EXTREMITY. Modifiers: right . 01 Clinical history: . Thrombus, left groin Nausea/vomiting with lactic acidosis and hyperglycemia . 02 Diagnosis: Clot right extremity: - Thrombus and benign fibrointimal tissue. (KIM/db; 01/10/2020) LBQ 01/10/2020 1123 Local . 02 Electronically signed: . Bill Hyman MD, Pathologist NPI- [id number] . 01 Gross description: . The specimen is received in formalin, labeled "Yumiko Somerset, clot right extremity". Received is a moderate amount of blood coagulum measuring 3.6 x 3.0 x 0.8 cm in aggregate dimensions. The specimen is submitted entirely in cassettes A1 and A2. (CAA; 01/07/2020) QAC/QAC 01/07/2020 1708 Local . 02 Pathologist provided ICD-10: I74.3 . 02 CPT . 044146 Specimen Comment: A courtesy copy of this report has been sent to [phone] Specimen Comment: Report sent to Performed at: [address] [place], [place] [id number] MD Yves Giang MD Phone: [phone] Performed at: 02 [facility] [address], [place], [place] [id number] MD Bill Hyman MD Phone: [phone]
[2020-01-10 16:00] VITALS: BP 172/63
--- NOTE | 2020-01-10 18:10 | NUR ---
PT RESED IN BED TURNING Q2 HOUR. TAKING IN GOOD PO. WILL CONINUE TO ASSESS.
[2020-01-10 19:55] VITALS: BP 153/71
[2020-01-11] VITALS: BP 142/76
[2020-01-11 04:00] VITALS: BP 127/77
[2020-01-11 05:18] LABS: ALBUMIN 1.9 g/dL (3.4-5.0); CALCIUM 8.6 mg/dL (8.5-10.1); CREATININE 4.1 mg/dL (0.6-1.3); PHOSPHORUS* 4.5 mg/dL (2.5-4.9); POTASSIUM 3.9 mmol/L (3.5-5.1)
--- NOTE | 2020-01-11 06:42 | NUR ---
VSS. NO ACUTE CHANGES THROUGHOUT SHIFT. PT C/O R FOOT PAIN, PEDAL PULSES 1+, CAPILLARY REFILL <3 SECONDS, TEMP. WARM POWER. ON BOTH FEET. SEE CHARTING FOR MORE INFO.
--- NOTE | 2020-01-11 07:15 | NUR ---
CHANGE OF STAFF, BEDSIDE REPORT GIVEN PATIENT SEEN AT BEDSIDE, IN BED ASLEEP ASSUMED PATIENT CARE
[2020-01-11 08:00] VITALS: BP 148/75
[2020-01-11 09:08] LABS: ANA INTERPRETATION Negative (Negative)
--- NOTE | 2020-01-11 10:07 | NUR ---
pipo updated [facility] the pt's anticipated d/c date per Dr. Mcelroy. cm faxed [facility] updtaed notes per her request. [facility] states they are able to accept pt for skilled.
[2020-01-11 12:08] VITALS: BP 150/63
[2020-01-11 16:16] VITALS: BP 105/60
[2020-01-11 21:14] VITALS: BP 161/71
[2020-01-12] VITALS: BP 153/75
[2020-01-12 04:00] VITALS: BP 115/55
[2020-01-12 07:50] LABS: CALCIUM 8.6 mg/dL (8.5-10.1); CREATININE 3.3 mg/dL (0.6-1.3); POTASSIUM 3.7 mmol/L (3.5-5.1); TOTAL BILIRUBIN 0.4 mg/dL (<0.1-1.0); TOTAL PROTEIN 7.3 g/dL (6.4-8.2)
[2020-01-12 08:00] VITALS: BP 143/55
--- NOTE | 2020-01-12 08:25 | NUR ---
PT IS ABLE TO COMMUNICATE HER NEEDS TO STAFF EFFECTIVELY. CURRENT PAIN MEDICATION REGIMEN HAS BEEN ADEQUATE FOR CONTROLLING HER PAIN UP TO THIS TIME. ABRAHAM HAS BEEN PATENT UP TO THIS TIME. PT REFUSING PROFO BOOT AND SCDs. POSSIBLE DISCHARGE TODAY.
--- NOTE | 2020-01-12 08:56 | NUR ---
Pt to dc back to [facility] today. Waiting for Dr to round to resign orders. CM updated [facility], faxed dc orders. CM to update Pt's son. Will arrange ambulance transport. Chart has been copied.
[2020-01-12 10:08] LABS: GLOMERULR BASEM MEMBRN AB 3 units (0-20)
[2020-01-12 12:08] VITALS: BP 110/70
[2020-01-12 14:00] VITALS: BP 110/70
[2020-01-12] MEDS ORDERED: XARELTO10 MG PO (14:14)
[2020-01-12] MEDS ORDERED: LYRICA25 MG PO (14:41)
[2020-01-12] MEDS ORDERED: TRAMADOL 50 MG50 MG PO (14:45)
[2020-01-12] MEDS ORDERED: HYDROCODON-ACE1 EAC7 PO (14:45)
[2020-01-12] MEDS ORDERED: LIDODERM1 EACH TOP (14:53)
[2020-01-12] MEDS ORDERED: LIPITOR40 MG PO (14:55)
[2020-01-12] MEDS ORDERED: NYSTATIN1 EA10 TOP (14:58)
[2020-01-12] MEDS ORDERED: LOPRESSOR50 PO (15:00)
[2020-01-12] MEDS ORDERED: PREDNISONE 20 M20 M1 PO (15:01)
[2020-01-12] MEDS ORDERED: NORVASC 2.5 MG2.5 M1 PO (15:03)
[2020-01-12] MEDS ORDERED: ZOFRAN4 MG PO (15:04)
[2020-01-12] MEDS ORDERED: TYLENOL325 MG PO (15:06)
[2020-01-12] MEDS ORDERED: CEFDINIR300 MG PO (15:29)
--- NOTE | 2020-01-12 15:50 | NUR ---
ASSUMED PT CARE AT 0730. ASSESSMENT COMPLETED CHARTED. ABLE TO MAKE NEEDS KNOWN. C/O PAIN IN RIGHT FOOT AND LEG. [id number] COMPLETED CHARTED. DISCHARGE APPROVED AND COMPLETED. PT BELONGINGS TAKEN WITH THEM, IV AND HEART MONITOR REMOVED. AMBULANCE CAME TO PICK HER UP AT AROUND 1540. [facility] NO COMMENTS, QUESTIONS OR CONCERNS NOTED.
--- NOTE | 2020-01-13 13:21 | OP ---
[address] [address] OPERATIVE REPORT Name: SOOTONY Surjit Room: [address] IN M.R.#: [id number] Admission: 12/30/19 Attend Phys: Surjit eLe Discharge: 01/12/20 Date of : 37 Report #: [id number] THIS REPORT FOR: //name// cc: Jorge Ellsworth MD, Srinath MD ~ THIS REPORT FOR: //name// CC: Thanh Ellsworth DATE OF SERVICE: 01/06/2020 PREOPERATIVE DIAGNOSIS: Acute on chronic ischemia right lower extremity. POSTOPERATIVE DIAGNOSIS: Acute on chronic ischemia right lower extremity. PROCEDURE: Open thrombectomy right superficial femoral, common femoral, and profunda femoris arteries. SURGEON: Raghavendra Goodwin MD VAMP THROATER: Dick Forrest, surgical instrument mechanic. COMPLICATIONS: None. ESTIMATED BLOOD LOSS: 100 mL. SPECIMEN: Includes thrombus and plaque. INDICATIONS FOR PROCEDURE: The patient is a very pleasant but confused 84-year-old female. She [facility]. Very little is known about her. She is noted to have a pulseless right lower extremity. CT scan revealed acute thrombus within chronic disease of her right lower extremity. She has prolonged ischemia time. She has lost neuro and motor function of her right foot. Her foot has been hurting her for at least the last 2 weeks. I discussed with her proceeding with open thrombectomy. I do not think she would tolerate a bypass procedure but I do think it will be reasonable to do open thrombectomy. Further, her profunda femoris has thrombus within it and I do not think she would have an amputation without an open thrombectomy. She does understand that reperfusing on ischemic limb can be risky with reperfusion syndrome. If she develops reperfusion syndrome, she will require emergent amputation. The patient states that she does not want an amputation at any cost even if it means her life. Thus, if she develops reperfusion syndrome, she is at high risk for limb loss and/or if she decides not to have an amputation. Informed consent was obtained with risks as mentioned above as well as bleeding, infection, need for further surgery, pain, , heart attack, [place] [address] OPERATIVE REPORT Name: OTNY VANN Room: [address]#: [id number] Admission: 12/30/19 Attend Phys: Surjit Lee Discharge: 01/12/20 Date of : 37 Report #: [id number] stroke. The patient understood these risks and was agreeable to proceed. DESCRIPTION OF PROCEDURE: The patient was taken to the OR and placed in supine position. After adequate general anesthesia was initiated, her right groin was prepped and draped in usual sterile fashion. Timeout was performed. I created a longitudinal incision in the patient's right groin. Sharp and blunt dissections were carried on the common femoral artery. This was controlled as well as the branches of the profunda femoris and superficial femoral artery. I performed a transverse arteriotomy at the femoral bifurcation. There was no blood flow. I passed a #4 Rohan proximally up into the common femoral artery and removed a large amount of thrombus at a plug-in cap. There was now forward flow in the common femoral artery, pulsatile. I re-occluded the common femoral. I then passed a #3 and #4 Rohan down both the profunda and the SFA. I returned a large amount of acute and chronic thrombus from both. There was small amount of plaque as well that was removed. I now had backbleeding from both the profunda femoris and the superficial femoral artery. I closed my arteriotomy with a running 5-0 Prolene suture. At the completion of the repair, there was adequate hemostasis. I interrogated vessels with Doppler. There was multiphasic signal in both the common femoral, profunda femoris, and superficial femoral arteries. I irrigated the wound bed with antibiotic saline. We controlled bleeding as needed with electrocautery, ties, clips, and Yuliya. We closed the wound in multiple layers using 2-0 Vicryl, 3-0 Vicryl, and Monocryl for the skin. Incision was dressed with Dermabond. The patient was taken alert and awake to recovery room in good condition with a viable foot. All needle and instrument counts were correct at the end of the case. <ELECTRONICALLY SIGNED> By: Raghavendra Goodwin MD 01/13/20 1321 1651 1715Raghavendra Goodwin MD /alex
== END 2020-01-12 15:37 | DRG 853 ==
LOC: M.ERS 09:05 → M.TBA-ER 10:32 → M.2W 10:32
PROVIDERS: Internal Medicine; Internal Medicine Nephrology; Nurse Practitioner Family; Personal Emergency Response Attendant; ADMIT Internal Medicine; ATTEND Internal Medicine
DX: A41.9 Sepsis, unspecified organism (principal); E11.00 Type 2 diabetes mellitus with hyperosmolarity without nonketotic hyperglycemic-hyperosmolar coma (NKHHC); G93.41 Metabolic encephalopathy; J96.01 Acute respiratory failure with hypoxia; I50.33 Acute on chronic diastolic (congestive) heart failure; N17.0 Acute kidney failure with tubular necrosis; I13.0 Hypertensive heart and chronic kidney disease with heart failure and stage 1 through stage 4 chronic kidney disease, or unspecified chronic kidney disease; I25.10 Atherosclerotic heart disease of native coronary artery without angina pectoris; R65.20 Severe sepsis without septic shock; E87.5 Hyperkalemia; E11.42 Type 2 diabetes mellitus with diabetic polyneuropathy; E11.51 Type 2 diabetes mellitus with diabetic peripheral angiopathy without gangrene; E11.22 Type 2 diabetes mellitus with diabetic chronic kidney disease; N18.3 Chronic kidney disease, stage 3 (moderate); E11.65 Type 2 diabetes mellitus with hyperglycemia; I65.29 Occlusion and stenosis of unspecified carotid artery; I77.1 Stricture of artery; I70.201 Unspecified atherosclerosis of native arteries of extremities, right leg; E66.9 Obesity, unspecified; R31.9 Hematuria, unspecified; T36.8X5A Adverse effect of other systemic antibiotics, initial encounter; Y92.230 Patient room in hospital as the place of occurrence of the external cause; R50.9 Fever, unspecified; Z86.73 Personal history of transient ischemic attack (TIA), and cerebral infarction without residual deficits; Z90.11 Acquired absence of right breast and nipple; I25.2 Old myocardial infarction; Z90.710 Acquired absence of both cervix and uterus; Z90.49 Acquired absence of other specified parts of digestive tract; Z79.82 Long term (current) use of aspirin; Z79.4 Long term (current) use of insulin; Z79.899 Other long term (current) drug therapy; Z79.01 Long term (current) use of anticoagulants; Z68.32 Body mass index [BMI] 32.0-32.9, adult; Y92.89 Other specified places as the place of occurrence of the external cause; Z95.5 Presence of coronary angioplasty implant and graft

== ENCOUNTER 2020-01-28 19:41 | Inpatient (IN) | payer MEDICARE, MEDICAID ==
[~2020-01-28] VITALS: Ht 165.1 cm; Wt 82.5 kg
--- NOTE | ~2020-01-28 | CON ---
[address] [address] CONSULTATION Name: SOOTONY M Room: [address] IN M.R.#: [id number] Admission: 01/28/20 Attend Phys: Basilia Ball Discharge: Date of : 37 Report #: [id number] THIS REPORT FOR: //name// cc: Jorge Ellsworth MD, Srinath MD ~ THIS REPORT FOR: //name// CC: Basilia Rooney DATE OF SERVICE: 01/30/2020 ADMISSION DIAGNOSES: Generalized weakness, decubitus ulcerations, right posterior heel decubitus. 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 The patient is a poor historian, she is nonverbal. She does not verbally engage much. She relates pain to the right posterior heel with a chronic ulceration to the posterior heel. She had prior thrombectomy of the right lower extremity performed by Dr. Goodwin, with current 1-vessel runoff via the peroneal artery. She is currently on parenteral vancomycin and Zosyn. Blood cultures are negative x 2. Admission foot radiographs were negative for osteomyelitis. She is currently nonambulatory. LABORATORY DATA: WBC 8.5, hemoglobin 8.6, hematocrit 27.1, platelets 294. BUN 15, creatinine 1.6, glucose 103. ESR 92. PHYSICAL EXAMINATION: There is a dry black eschar to the right posterior heel that measures 3.0 x 2.6 cm. It is firmly adhered with no underlying fluctuance or crepitation. There is no drainage or signs of underlying abscess. The eschar is fairly stable and tender to palpation. ___ low-grade. The right lower extremity has low-grade inflammation, it is probably cellulitis. I cannot palpate her pedal pulses, but they are dopplerable per Vascular Surgery note. There is no pallor, cyanosis or signs of acute vascular embarrassments. No paronychia noted. No lesions noted to the left lower extremity. IMPRESSION: Stable decubitus ulceration, right posterior calcaneus with cellulitis. ____ peripheral arterial disease. PLAN: ___. By: 1225 1238Cristian King DPM /alex
[~2020-01-28 19:41] MED LIST changes: +BASAGLAR K100 UNIT/1 SUBQ; +CEFDINIR300 MG PO; +HYDROCODON-ACE1 EAC7 PO; +LIDODERM1 EACH TOP; +LIPITOR40 MG PO; +LYRICA25 MG PO; +NORVASC 2.5 MG2.5 M1 PO; +NYSTATIN1 EA10 TOP; +PREDNISONE 20 M20 M1 PO; +TOLTERODINE TART2 M1 PO; +TYLENOL325 MG PO; +XARELTO10 MG PO; +ZOFRAN4 MG PO
[2020-01-28 19:43] VITALS: BP 175/65
--- NOTE | 2020-01-28 20:05 | NUR ---
SPOKE WITH PATIENT'S DAUGHTER, CYNTHIA, AT REQUEST OF PATIENT. UPDATE GIVEN ON PLAN OF CARE, UNDERSTANDING VERBALIZED. DAUGHTER REQUESTING UPDATE AFTER RESULTS [phone]
[2020-01-28 22:41] LABS: ABSOLUTE BASOPHILS 0.1 thou/uL (0.0-0.2); ABSOLUTE LYMPHOCYTES 1.4 thou/uL (0.8-5.3); ABSOLUTE MONOCYTES 0.5 thou/uL (0.0-1.2); ABSOLUTE NEUTROPHILS 10.8 thou/uL (1.6-8.1); EOSINOPHILS 0.1 %; HEMATOCRIT 33.8 % (37.0-47.0); HEMOGLOBIN 10.7 gm/dL (12.0-15.0); LYMPHOCYTES 11.1 %; MCH 24.7 pg (26.0-34.0); MCHC 31.8 g/dL (28.0-37.0); MCV 77.8 fL (80.0-100.0); MONOCYTES 4.2 %; MPV 8.4 fl. (7.2-11.1); NUCLEATED RBCS 0 /100WBC; PLATELET COUNT* 382 thou/uL (150-400); POLYS 83.6 %; RBC 4.35 mil/uL (4.20-5.00); RDW-CV 20.9 % (10.5-14.5); WBC 12.9 thou/uL (4.0-11.0)
[2020-01-28 22:50] LABS: CALCIUM 8.4 mg/dL (8.5-10.1); CREATININE 1.8 mg/dL (0.6-1.3); POTASSIUM 3.9 mmol/L (3.5-5.1)
[2020-01-28 22:55] LABS: ALBUMIN 2.4 g/dL (3.4-5.0); MAGNESIUM 1.6 mg/dL (1.8-2.4); PHOSPHORUS* 3.9 mg/dL (2.5-4.9); TOTAL BILIRUBIN 0.4 mg/dL (<0.1-1.0); TOTAL PROTEIN 7.6 g/dL (6.4-8.2)
[2020-01-28 23:47] LABS: ESR (SEDRATE) 92 mm/hr (0-30)
[2020-01-29 00:02] VITALS: BP 174/56
[2020-01-29 00:05] LABS: ANISOCYTOSIS 2+; HYPOCHROMASIA 1+
[2020-01-29 00:06] LABS: PLATELET ESTIMATE ADEQUATE; TARGET CELLS Occasional
[2020-01-29 05:18] VITALS: BP 165/91
[2020-01-29 08:00] VITALS: BP 186/94
--- NOTE | 2020-01-29 08:00 | NUR ---
AM ASSESSMENT COMPLETE, DEFER TO COMPUTER CHARTING. LOSS PREVENTION MANAGER TRACKING SR. ALERT ORIENTED. DENIES PAIN AT THIS TIME - STATES SLEEPY. GENERALIZED PEELING AREAS OF SKIN NOTED - AREA ON BOTTOM RED, RIGHT HEEL BLACK ESCHAR - HEELS ELEATED ON PILLOW - REPOSITIONED IN BED. LUNGS CTA, DIMINISHED IN BASES - ROOM AIR, NO SIGN OF RESPIRATORY DISTRESS. CALL LIGHT WITHIN REACH, WILL MONITOR.
--- NOTE | 2020-01-29 09:51 | EKG ---
[place] [address] ELECTROCARDIOGRAM REPORT Name: SOOTONY Room: [address] ADM IN M.R.#: [id number] Admission: 01/28/20 Attend Phys: Basilia sands Sa Discharge: Date of : 37 Date of Service: 01/28/202011 Report #: [id number] THIS REPORT FOR: //name// [facility] ED Test Date: 2020-01-28 Test Time: 20:12:19 Pat Name: TONY VANN Department: Room: [facility] Gender: F Ed Special Education Teacher: MICHELLE : 1935 Requested By: Elenita Orozco Order Number: [id number] MD: Gary Garcia Measurements Intervals Tobias Rate: 84 P: 52 ND: 160 QRS: -4 QRSD: 107 T: -5 QT: 417 QTc: 493 Interpretive Statements Sinus rhythm Probable left ventricular hypertrophy Borderline T abnormalities, diffuse leads Borderline prolonged QT interval Compared to ECG 12/30/2019 09:12:42 T-wave abnormality now present Sinus bradycardia no longer present Atrial premature complex(es) no longer present Electronically Signed On 01-29-2020 9:51:32 CDT by Gary Garcia [email or web address] <ELECTRONICALLY SIGNED> By: Gary Garcia MD, [facility] 01/29/20 0951 11 11 Gary Garcia MD, [facility] /EPI
[2020-01-29 12:00] VITALS: BP 188/86
[2020-01-29 15:42] LABS: URINE BILIRUBIN NEGATIVE (Negative); URINE BLOOD NEGATIVE (Negative); URINE CLARITY CLEAR; URINE COLOR YELLOW; URINE GLUCOSE-RANDOM 2+ (Negative); URINE KETONES NEGATIVE (Negative); URINE LEUKOCYTES-REFLEX NEGATIVE (Negative); URINE NITRITE-REFLEX NEGATIVE (Negative); URINE PROTEIN 1+ (Negative); URINE SPECIFIC GRAVITY 1.015 (1.005-1.030); URINE UROBILINOGEN 0.2 E.U./dl (0.2-1.0)
--- NOTE | 2020-01-29 19:01 | NUR ---
GERMAN TEACHER TRACKING SR. ALERT ORIENTED, BUT FORGETFUL AND CONFUSED AT TIMES. INCONTINENT OF URINE, SKIN PEELING ON BODY WITH PRESSURE WOUNDS - ORDERS RECEIVED EARLIER FOR ABRAHAM CATH PLACEMENT. 16IN FR ABRAHAM CATH INSERTED PER ORDERS. PATIENT PULLED CENTRAL LINE EARLIER - CALL PLACED TO NOTIFY DR - STAT CXR OBTAINED TO VERIFY DISPLACEMENT OF CENTRAL LINE - INFILTRATED/PULLED BACK - IV FLUIDS STOPPED EARLIER WHEN CENTRAL LINE SITE NOTED - DC'D GAUZE AND OPSITE DRESSING AT SITE. UNABLE TO OBTAIN IV ACCESS - ATTEMPTED BY MULTIPLE NURSES, ALONG WITH ITALIA BARBOZA SURGERY CONSULTED TO REPLACE CENTRAL LINE. CALL PLACED TO DAUGHTER TO RECEIVE CONSENT NO ANSWER AT THIS TIME, MESSAGE LEFT TO CALL HOSPITAL REGARDING MOTHER. HEELS ELEVATED OFF BED WITH PILLOWS. ASSIST GIVEN WITH SET UP AND NEEDING ASSIST WITH FEEDING AT TIMES WITH MEALS. UP IN CHAIR EARLIER - MAX ASSIST X 3 TO RETURN TO BED. REMAINS ON ROOM AIR, WITH NO SIGN OF RESPIRATORY DISTRESS. CALL LIGHT WITHIN REACH. WILL CONTINUE WITH PLAN OF CARE.
[2020-01-29 20:00] VITALS: BP 116/58
[2020-01-30] VITALS: BP 160/58
[2020-01-30 04:00] VITALS: BP 133/58
[2020-01-30 06:47] LABS: HEMATOCRIT 27.1 % (37.0-47.0); MCH 24.7 pg (26.0-34.0); MCHC 31.8 g/dL (28.0-37.0); MCV 77.6 fL (80.0-100.0); MPV 8.6 fl. (7.2-11.1); RBC 3.49 mil/uL (4.20-5.00); RDW-CV 20.7 % (10.5-14.5); WBC 8.5 thou/uL (4.0-11.0)
[2020-01-30 06:54] LABS: HEMOGLOBIN 8.6 gm/dL (12.0-15.0)
[2020-01-30 07:06] LABS: ALBUMIN 1.9 g/dL (3.4-5.0); CREATININE 1.6 mg/dL (0.6-1.3); MAGNESIUM 1.5 mg/dL (1.8-2.4); PHOSPHORUS* 3.2 mg/dL (2.5-4.9); POTASSIUM 3.4 mmol/L (3.5-5.1)
[2020-01-30 07:09] LABS: CALCIUM 7.4 mg/dL (8.5-10.1)
--- NOTE | 2020-01-30 07:58 | NUR ---
PT ALERT AND ORIENTED LAST NIGHT. PAIN MEDICATION GIVEN NEEDED. CENTRAL LINE PLACED AT BEGINNING OF SHIFT CHANGE. VERIFIED PLACEMENT WITH CXR. DR MONTAÑO NOTIFIED OF RESULTS AND OK OT USE CENTRAL LINE. PT'S CENTRAL LINE SITE BLEEDING THROUGHT SHIFT. COMPRESSSION DRESSINGS APPLIED. NOTIFIED AUTOMOBILE LIGHTS ASSEMBLER AND ASSESSED FREQENTLY. FLUSHED AND ABLE TO DRAW BLOOD AND ADMINISTER ABX/FLUIDS. PT RESTED TRHOUGH NIGHT, CALL LIGHT IN REACH. HOURLY ROUNDING FOR SAFETY.
[2020-01-30 08:00] VITALS: BP 170/90
--- NOTE | 2020-01-30 08:00 | NUR ---
ASSUMED CARE OF PATIENT THIS MORNING FROM NIGHT NURSE. PT IS VERY LETHARGIC. PT WILL WAKE TO VOICE. SHE HAS NO CO O FPAIN OR NAUSEA AT THIS TIME. SHE WAS EDUCATED ON POC AND WOUND CARE. HER BED IS IN THE LOWEST POSITION, CALL LIGHT IN REACH, BED ALARM IS ON AND FALL EDUCATION GIVEN TO PT. WILL CONTINUE TO MONITOR.
[2020-01-30 12:18] VITALS: BP 157/60
[2020-01-30 16:11] VITALS: BP 115/55
[2020-01-30 20:00] VITALS: BP 136/67
[2020-01-31] VITALS (7 sets, daily range): BP systolic 121–159; BP diastolic 54–70
--- NOTE | 2020-01-31 05:59 | NUR ---
ASSESSMENTS COMPLETED AT BEDSIDE, PLEASE REFER TO CHARTING FOR DETAILS. MEDICATIONS ADMINISTERED PER MAR. HOURLY ROUNDING COMPLETED FOR SAFETY. FALL PERCAUTIONS IN PLACE, BED ALARM ON AND CALL LIGHT WITHIN REACH.
--- NOTE | 2020-01-31 07:49 | CON ---
[address] [address] CONSULTATION Name: SOOTONY Eddy Room: [address] IN M.R.#: [id number] Admission: 01/28/20 Attend Phys: Basilia Ball Discharge: Date of : 37 Report #: [id number] THIS REPORT FOR: //name// cc: Jorge Ellsworth MD, Srinath MD ~ THIS REPORT FOR: //name// CC: Basilia Rooney DATE OF SERVICE: 01/30/2020 INFECTIOUS DISEASE CONSULTATION ATTENDING PHYSICIAN: Basilia James MD REASON FOR EVALUATION: Perineal skin and soft tissue infection with cellulitis, complicated by desquamation, also positive blood culture. HISTORY OF PRESENT ILLNESS: Chart reviewed, patient examined. This is an 84-year-old woman with history of diabetes mellitus, previous stroke, has known generalized vasculopathy who was admitted from a facility, noted some discoid skin over the posterior perineum as well as the upper limbs. Does have a chronic decubitus ulcer as well of the right heel. She is unable to give any details of her history. She just received medicines that led to somnolence. They did speak to her daughter who states she had spoken with her and mental status appears to be somewhat normal. Unclear by history if she has had fevers, although she had one elevated temperature early this morning at 100.1. Generally, her hemodynamics have been relatively stable more way toward hypertension. Initial CRP was elevated at 42. Lactic acid 2.2. Did have a positive blood culture, 1 out of 2, with Gram-positive cocci. Urinalysis was generally unremarkable. Chest x-ray: Mild perihilar infiltrates. She is empirically started on therapy with Zosyn and vancomycin. It is notable that she was hospitalized here last couple of weeks, was diagnosed with hyperosmolar hyperglycemic state. Right lower extremity thrombus with thrombectomy. ALLERGIES: None known. MEDICINES: Include amlodipine, famotidine, cholecalciferol, aspirin, tramadol, allopurinol, atorvastatin, p.r.n. Haldol, vancomycin, rivaroxaban, gabapentin, metoprolol, ropinirole, Zosyn. PAST MEDICAL HISTORY: History of diabetes mellitus complicated by vasculopathy, known coronary artery disease, peripheral vascular disease, central nervous system disease including carotid stenosis, previous TIAs, chronic renal insufficiency, history of dyslipidemia and diverticulitis, hypertension, [place] [address] CONSULTATION Name: TONY VANN Surjit Room: [address]#: [id number] Admission: 01/28/20 Attend Phys: Basilia Ball Discharge: Date of : 37 Report #: [id number] previous hysterectomy, cholecystectomy, right mastectomy. SOCIAL HISTORY: Nonsmoker, no ethanol, no illicit drug use. FAMILY HISTORY: Noncontributory. REVIEW OF SYSTEMS: Not obtained due to her unresponsiveness. PHYSICAL EXAMINATION: GENERAL: She is lying in a left lateral decubitus position. She has got some degree of sonorous breathing, really unable to arouse for more than just a brief. She appears somewhat chronically ill, mildly undernourished. VITAL SIGNS: Temperature 98.6, pulse 88, respirations 18, blood pressure 170/90. SKIN: Warm, dry, no rashes. HEENT: Normocephalic. NECK: Appears to be supple. LUNGS: Diminished breath sounds. HEART: Regular. I do not appreciate murmur. ABDOMEN: Obese, soft. SKIN: Has widely desquamating process involving the superficial. There appears to be intact skin underneath. At this point, there are no bullous lesions. I suspect that had been not overtly inflamed at those sites. LABORATORY AND X-RAY DATA: Blood cultures 1 out 2 with Gram-positive cocci. Electrolytes: Sodium 142, potassium 3.4, chloride 107, bicarbonate is 26, BUN and creatinine 15 and 1.6, glucose of 103, albumin 1.9. CBC: White count of 8.5, H and H 8.6 and 27.1, platelets of 294. Chest x-ray: Mild perihilar infiltrates. MRSA screening PCR for surveillance was negative. Urinalysis unremarkable. Lactic acid initially 2.2, repeat was 2.1 and 1.9. COVID testing was negative. ASSESSMENT: Desquamating process seems to be systemic, certainly raises question of possible drug-related adverse effect. Given the widespread nature, it seems less likely to be an infectious. It was systemic. She is not overtly toxic at this point to have positive blood cultures. We will await those results. Continue empiric antibiotics, adjust therapy off the vancomycin, piperacillin and tazobactam combination. She remains quite tenuous. At this point, I do not think there is any issue with expectation of extensive wounds given the superficial nature of the bullous lesions. Of lately, may have some underlying dermatological issue. Dermatology would be helpful in assisting. Maybe at the setting of the bullous lesions, consider a biopsy with immunofluorescent [place] [address] CONSULTATION Name: VIRY VANNLEY Surjit Room: [address] IN ..#: [id number] Admission: 01/28/20 Attend Phys: Basilia Ball Discharge: Date of : 37 Report #: [id number] Thank you, we will follow. <ELECTRONICALLY SIGNED> By: Zeeshan Ren MD 01/31/20 0749 1228 1247Jocele Ren MD /nt
--- NOTE | 2020-01-31 12:36 | NUR ---
Nutrition: Pt admitted with decub to Rt heel. Seen for ulcer. Pt refused Marques stating she's had it before and doesn't like it. She was eating lunch during our visit - good appetite. She stated the food is very good. Wt: 172#. BG fluctuating, currently 135. Alb 1.9, prealb 14.1. Hopeful that pt will continue to eat well, good HBV protein at meals, good hydration. Recommend MVI. Otherwise, mild risk. Follow up per protocol.
--- NOTE | 2020-01-31 15:26 | EKG ---
[place] [address] ELECTROCARDIOGRAM REPORT Name: TONY VANN Room: [address] ADM IN M.R.#: [id number] Admission: 01/28/20 Attend Phys: Basilia sands Sa Discharge: Date of : 37 Date of Service: 01/29/20 0416 Report #: [id number] THIS REPORT FOR: //name// [facility] Test Date: 2020-01-29 Test Time: 04:16:39 Pat Name: TONY VANN Department: Room: [address] Gender: F Asbestos Handler: MAGI : 1935 Requested By: Basilia James Order Number: [id number] Brittany MD: Ayad Blackwood Measurements Intervals [place] Rate: 85 P: 48 MN: 174 QRS: -12 QRSD: 106 T: 30 QT: 395 QTc: 470 Interpretive Statements Sinus rhythm Probable left ventricular hypertrophy Compared to ECG 01/28/2020 20:12:19 T-wave abnormality no longer present Electronically Signed On 01-31-2020 15:26:05 CDT by Ayad Blackwood [email or web address] <ELECTRONICALLY SIGNED> By: Ayad Blackwood MD, [facility] 01/31/20 1526 0416 0416 Ayad Blackwood MD, [facility] /EPI
--- NOTE | 2020-01-31 16:45 | NUR ---
Pt lives at [facility]. SW faxed information to [facility] admissions to provide update and in preparation for eventual dc. Will send further updates/dc info when available. Pt has wc, limited mobility. SW to continue to follow to assist with safe dc planning. [facility] ph [phone], fax [phone]
[2020-02-01 04:49] LABS: HEMATOCRIT 24.9 % (37.0-47.0); HEMOGLOBIN 8.1 gm/dL (12.0-15.0); MCH 25.2 pg (26.0-34.0); MCHC 32.7 g/dL (28.0-37.0); MCV 77.2 fL (80.0-100.0); MPV 7.8 fl. (7.2-11.1); RBC 3.22 mil/uL (4.20-5.00); RDW-CV 20.3 % (10.5-14.5); WBC 9.5 thou/uL (4.0-11.0)
[2020-02-01 04:55] LABS: CALCIUM 7.4 mg/dL (8.5-10.1); CREATININE 1.8 mg/dL (0.6-1.3); MAGNESIUM 1.5 mg/dL (1.8-2.4); PHOSPHORUS* 2.6 mg/dL (2.5-4.9); POTASSIUM 3.2 mmol/L (3.5-5.1)
[2020-02-01 05:10] VITALS: BP 137/53
[2020-02-01 09:21] VITALS: BP 119/56
[2020-02-01 11:30] VITALS: BP 117/40
--- NOTE | 2020-02-01 11:44 | NUR ---
PT IS ALERT AND ORIENTED X2 C/O PAIN T/O BUT MAINLY IN RIGHT HEEL DOES NOT LIKE TO KEEP BOOT ON STATES IT MAKES IT WORSE PT IS Q2H TURN SLOUGHING TO SKIN CONTINUES AND CREAM APPLIED PT ATE WELL THIS AM JUST NEEDS SET UP CALL LIGHT IN REACH
[2020-02-01 20:00] VITALS: BP 145/58
[2020-02-02 04:55] VITALS: BP 150/66
[2020-02-02 05:06] LABS: CALCIUM 7.8 mg/dL (8.5-10.1); CREATININE 1.4 mg/dL (0.6-1.3); MAGNESIUM 1.5 mg/dL (1.8-2.4); POTASSIUM 3.9 mmol/L (3.5-5.1)
[2020-02-02 05:15] LABS: HEMATOCRIT 27.3 % (37.0-47.0); HEMOGLOBIN 8.9 gm/dL (12.0-15.0); MCHC 32.5 g/dL (28.0-37.0); MCV 76.9 fL (80.0-100.0); MPV 8.7 fl. (7.2-11.1); RBC 3.55 mil/uL (4.20-5.00); RDW-CV 21.2 % (10.5-14.5); WBC 11.6 thou/uL (4.0-11.0)
--- NOTE | 2020-02-02 05:50 | NUR ---
ASSESSMENTS COMPLETED AT BEDSIDE, PLEASE REFER TO CHARTING FOR DETAILS. MEDICATIONS ADMINISTERED PER MAR. HOURLY ROUNDING COMPLETED FOR SAFETY. FALL PERCAUTIONS IN PLACE, BED ALARM ON AND CALL LIGHT WITHIN REACH. PT HAVING IMPULSIVE BEHAVIORS ATTEMPTING TO GET OUT OF BED.
[2020-02-02 09:39] VITALS: BP 119/64
[2020-02-02 10:41] LABS: URINE BILIRUBIN NEGATIVE (Negative); URINE BLOOD 3+ (Negative); URINE CLARITY CLEAR; URINE COLOR YELLOW; URINE GLUCOSE-RANDOM NEGATIVE (Negative); URINE KETONES NEGATIVE (Negative); URINE LEUKOCYTES-REFLEX NEGATIVE (Negative); URINE NITRITE-REFLEX NEGATIVE (Negative); URINE PROTEIN 1+ (Negative); URINE SPECIFIC GRAVITY 1.025 (1.005-1.030); URINE UROBILINOGEN 0.2 E.U./dl (0.2-1.0)
[2020-02-02 11:01] LABS: BACTERIA-REFLEX 1-9 Few /HPF (None Seen); CASTS None Seen /LPF (None Seen); CRYSTALS None Seen /LPF (None Seen); MUCUS None Seen strn/LPF (None Seen); SQUAMOUS 0-3 Few /LPF (0-3); URINE WBC-REFLEX 6-15 Few /HPF (0-5); YEAST-REFLEX Present (None Seen)
[2020-02-02 16:07] VITALS: BP 130/46
[2020-02-02 19:50] VITALS: BP 135/60
[2020-02-02 23:29] VITALS: BP 153/61
[2020-02-03 04:20] VITALS: BP 153/75
[2020-02-03 04:59] LABS: HEMATOCRIT 25.3 % (37.0-47.0); HEMOGLOBIN 8.3 gm/dL (12.0-15.0); MCH 25.5 pg (26.0-34.0); MCHC 32.7 g/dL (28.0-37.0); MCV 77.9 fL (80.0-100.0); MPV 8.5 fl. (7.2-11.1); RBC 3.25 mil/uL (4.20-5.00); RDW-CV 20.6 % (10.5-14.5); WBC 9.9 thou/uL (4.0-11.0)
[2020-02-03 05:18] LABS: CALCIUM 7.6 mg/dL (8.5-10.1); CREATININE 1.3 mg/dL (0.6-1.3); MAGNESIUM 1.6 mg/dL (1.8-2.4); POTASSIUM 3.8 mmol/L (3.5-5.1)
--- NOTE | 2020-02-03 05:48 | NUR ---
PATIENT PROGRESSING TOWARDS GOALS: PATIENT'S PAIN MANAGED WITH RELAXATION, REPOSITIONING, AND MEDICATION PER MAR. PATIENT WAS ABLE TO REST QUIETLY A MAJORITY OF THE SHIFT. CALL LIGHT WITHIN REACH
[2020-02-03 07:30] VITALS: BP 137/63
--- NOTE | 2020-02-03 12:35 | NUR ---
MERE spoke with Dorie at [facility] and faxed progress note to provide update and information regarding possible dc tomorrow. MERE to continue to follow to assist with safe dc planning.
[2020-02-03 13:30] VITALS: BP 139/52
--- NOTE | 2020-02-03 15:38 | NUR ---
WOUND NURSE: FOLLOWED UP WITH PATIENT REGARDING STABLE BLACKENED ESCHAR ON RIGHT POSTERIOR HEEL. MEASURES 2.5 X 3.0 CM. SKIN IS INTACT. [place] HAS HEELMEDIX BOOTS BUT REFUSING TO WEAR THEM. PATIENT DID AGREE TO OFFLOAD HEELS FROM MATTRESS USING PILLOWS. EXPLAINED THE IMPORTANCE OF OFFLOADING HEELS TO PROMOTE HEALING AND PREVENT FURTHER COMPLICATIONS. PATIENT WAS INITIALLY SEEN BY DR ETHEL DPM REGARDING THIS LESION. RECOMMEND CONTINUE WITH OPEN TO AIR AND OFFLOADDDDD USING PILLOWS.
[2020-02-03 19:50] VITALS: BP 121/60
[2020-02-03 23:07] VITALS: BP 143/93
[2020-02-04 04:10] VITALS: BP 135/70
--- NOTE | 2020-02-04 05:25 | NUR ---
PATIENT PROGRESSING TOWARDS GOALS: PATIENT ABLE TO REST QUIETLY THIS SHIFT WITH MINIMAL C/O PAIN. PATIENT INCONTINENT OF STOOL X2 THIS SHIFT, ANDRE CARE PROVIDED AND BARRIER CREAM APPLIED. CALL LIGHT WITHIN REACH
[2020-02-04 08:00] VITALS: BP 127/63
[2020-02-04] MEDS ORDERED: EUCERIN CREME57 GM TOP (09:51)
[2020-02-04] MEDS ORDERED: SENNA-TIME S T1 EACH PO (09:51)
[2020-02-04 11:30] VITALS: BP 105/47
--- NOTE | 2020-02-04 14:12 | NUR ---
[facility] faxed final dc orders/summary/med list and ride arranged for 4:30 to 5 pm. [facility] ph: [phone]
[2020-02-04 14:31] VITALS: BP 105/47
--- NOTE | 2020-02-04 16:07 | NUR ---
PT VS CHARTED, A&OX4-FORGETFUL, ROOM AIR, MAX ASSIST, WOUNDS ON R HEEL, SACRUM AND L BUTTOCKS, HOURLY ROUNDING PERFORMED, POSSESSIONS AND CALL LIGHT WITHIN REACH. REC DISCHARGE ORDERS, REPORT GIV[facility] TO [facility], SENDING PATIENT IN WC [facility]AN WITH TRANSPORT
== END 2020-02-04 17:43 | DRG 871 ==
LOC: M.ERS 19:41 → M.2W 23:14 → M.TBA-ER 23:14 → M.2W 01-29 00:05
PROVIDERS: Internal Medicine; Personal Emergency Response Attendant; ADMIT Family Medicine; ATTEND Family Medicine
PROC: 02HV33Z Insertion of Infusion Device into Superior Vena Cava, Percutaneous Approach (ICD-10-PCS; principal; 2020-01-29)
DX: A41.1 Sepsis due to other specified staphylococcus (principal); G93.41 Metabolic encephalopathy; E43 Unspecified severe protein-calorie malnutrition; N17.0 Acute kidney failure with tubular necrosis; L03.115 Cellulitis of right lower limb; M31.9 Necrotizing vasculopathy, unspecified; N39.0 Urinary tract infection, site not specified; Z20.828 Contact with and (suspected) exposure to other viral communicable diseases; I25.10 Atherosclerotic heart disease of native coronary artery without angina pectoris; E11.42 Type 2 diabetes mellitus with diabetic polyneuropathy; N18.3 Chronic kidney disease, stage 3 (moderate); E11.51 Type 2 diabetes mellitus with diabetic peripheral angiopathy without gangrene; E11.622 Type 2 diabetes mellitus with other skin ulcer; D50.9 Iron deficiency anemia, unspecified; R23.4 Changes in skin texture; L89.619 Pressure ulcer of right heel, unspecified stage; F03.90 Unspecified dementia, unspecified severity, without behavioral disturbance, psychotic disturbance, mood disturbance, and anxiety; E11.22 Type 2 diabetes mellitus with diabetic chronic kidney disease; I12.9 Hypertensive chronic kidney disease with stage 1 through stage 4 chronic kidney disease, or unspecified chronic kidney disease; E11.65 Type 2 diabetes mellitus with hyperglycemia; L89.329 Pressure ulcer of left buttock, unspecified stage; L89.892 Pressure ulcer of other site, stage 2; Z90.49 Acquired absence of other specified parts of digestive tract; Z79.4 Long term (current) use of insulin; Z90.11 Acquired absence of right breast and nipple; I25.2 Old myocardial infarction; Z95.5 Presence of coronary angioplasty implant and graft; Z86.73 Personal history of transient ischemic attack (TIA), and cerebral infarction without residual deficits; Z90.710 Acquired absence of both cervix and uterus; Z82.49 Family history of ischemic heart disease and other diseases of the circulatory system; Z68.30 Body mass index [BMI] 30.0-30.9, adult